=== PATIENT | female | born 1995 | race Caucasian/White ===

== ENCOUNTER → 2019-01-19 | Outpatient (CLI) | payer BC ==
--- NOTE | 2019-01-19 15:48 | Diagnostic Imaging Report ---
INDICATION: Follow up subchorionic hemorrhage. TECHNIQUE: Multiple real-time grayscale images were obtained over the gravid uterus. COMPARISON: None FINDINGS: The cervix measures 4 cm in length and is closed. Fetus is in transverse lie with head to maternal right. Placenta is anterior and fundal in position. There is a small [id number] hypoechoic subchorionic hemorrhage measuring 0.6 cm in thickness and 3.4 cm in length. This involves less than 25% of the placental surface. The amount of amniotic fluid appears visually appropriate. heart rate is 142 beats per minute. IMPRESSION: 1. Thin elongated subchorionic hemorrhage measures 0.6 cm in thickness x 3.4 cm in length. Dictated by: Dictated on workstation # [id number]
== END ==
LOC: RAD 12:37
PROVIDERS: ATTEND Obstetrics & Gynecology
DX: O46.8X2 Other antepartum hemorrhage, second trimester (principal); Z3A.00 Weeks of gestation of pregnancy not specified
CPT/HCPCS: 76816

== ENCOUNTER → 2019-03-07 | Outpatient (CLI) | payer BC ==
--- NOTE | 2019-03-07 15:27 | Diagnostic Imaging Report ---
INDICATION: survey. TECHNIQUE: Multiple real-time grayscale images were obtained over the gravid uterus. COMPARISON: 01/19/2019. FINDINGS: There is a single live fetus in a cephalic presentation. heart rate was recorded at 139 beats per minute. Placenta is anterior. The amniotic fluid volume is normal. Cervical length is approximately 3.1 cm. survey demonstrates kidneys, bladder and stomach to be unremarkable. There is a three-vessel cord with normal insertion. Spine is unremarkable. Four-chamber heart view is limited. head anatomy somewhat limited due to patient body habitus. Biometrical measurements are as follows: Biparietal 5.16 cm, age 21 weeks 5 days. Head circumference 19.11 cm, age 21 weeks 3 days. Abdominal circumference 16.78 cm, age 21 weeks 6 days. Femur length 3.92 cm, age 22 weeks 5 days. Sonographic estimate age: 22 weeks 0 days. Sonographic estimated date of delivery: 07/11/2019. Estimated Weight: 473 gm (+/- 69 gm). LMP percentile: 26%. heart rate: 139 beats per minute. number: 1 of 1. IMPRESSION: Single live IUP approximately 22 weeks 0 days gestational age demonstrating normal interval growth when compared with prior exam. survey is unremarkable although head and four chamber heart views are somewhat limited on today's study. Dictated by: Dictated on workstation # [id number]
== END ==
LOC: RAD 14:15
PROVIDERS: ATTEND Obstetrics & Gynecology
DX: O10.912 Unspecified pre-existing hypertension complicating pregnancy, second trimester (principal); O41.8X20 Other specified disorders of amniotic fluid and membranes, second trimester, not applicable or unspecified; O24.912 Unspecified diabetes mellitus in pregnancy, second trimester; Z3A.22 22 weeks gestation of pregnancy
CPT/HCPCS: 76805

== ENCOUNTER → 2019-04-18 | Outpatient (CLI) | payer BC ==
--- NOTE | 2019-04-18 14:31 | Diagnostic Imaging Report ---
INDICATION: Followup anatomy and growth. TECHNIQUE: Multiple real-time grayscale images were obtained over the gravid uterus. COMPARISON: 03/07/2019. FINDINGS: There is a single live fetus in breech presentation. heart rate was recorded at 136 beats per minute. Placenta is anterior. Amniotic fluid index is 12.6 cm. Cervical length is 4.3 cm. Four-chamber heart is noted today. brain anatomy is unremarkable. Biometrical measurements are as follows: Biparietal 7.30 cm, age 29 weeks 3 days. Head circumference 26.48 cm, age 28 weeks 6 days. Abdominal circumference 24.13 cm, age 28 weeks 3 days. Femur length 5.18 cm, age 27 weeks 5 days. Sonographic estimate age: 28 weeks 5 days. Sonographic estimated date of delivery: 07/06/2019. Estimated Weight: 1198 gm (+/- 175 gm). LMP percentile: 31%. heart rate: 136 beats per minute. number: 1 of 1. IMPRESSION: Single live IUP at 28 to 29 weeks gestational age demonstrating normal interval growth when compared with prior exam. No complicating features are seen. Dictated by: Dictated on workstation # [id number]
== END ==
LOC: RAD 12:02
PROVIDERS: ATTEND Obstetrics & Gynecology
DX: O99.283 Endocrine, nutritional and metabolic diseases complicating pregnancy, third trimester (principal); O10.913 Unspecified pre-existing hypertension complicating pregnancy, third trimester; O24.313 Unspecified pre-existing diabetes mellitus in pregnancy, third trimester; Z3A.28 28 weeks gestation of pregnancy
CPT/HCPCS: 76805

== ENCOUNTER → 2019-05-16 | Outpatient (CLI) | payer BC ==
--- NOTE | 2019-05-16 17:13 | Diagnostic Imaging Report ---
INDICATION: Chronic hypertension. TECHNIQUE: Multiple real-time grayscale images were obtained over the gravid uterus. COMPARISON: 04/18/2019. FINDINGS: The previous OB ultrasound exam of 04/18/2019 noted a single live fetus of approximately 28-29 weeks gestation. On this exam, the fetus is again visualized. The fetus is cephalic in presentation. heart motion was noted and a rate of 139 bpm was recorded. The biophysical profile score is 8/8 and within normal limits. On the previous exam, the amniotic fluid index was 12.59. On this study, the KAI has increased and is now 25.22 (normal 8 to 22 cm). The reason for the polyhydramnios is not certain. The placenta is anterior and there is no previa. The cervix is visualized and measures 4 cm in length. The growth parameters average 33 weeks 3 days, +/- 2.5 weeks. By the first exam, the estimated age should be 32 weeks 3 days, +/- 2 weeks. Biometrical measurements are as follows: Biparietal 8.61 cm, age 34 weeks 6 days. Head circumference 30.84 cm, age 34 weeks 3 days. Abdominal circumference 27.77 cm, age 31 weeks 6 days. Femur length 6.18 cm, age 32 weeks 1 days. Sonographic estimate age: 33 weeks 3 days. Sonographic estimated date of delivery: 07/01/2019. Estimated Weight: 1964 gm (+/- 287 gm). LMP percentile: 38%. heart rate: 139 beats per minute. number: 1 of 1. IMPRESSION: 1. There is a single live fetus of approximately 32 weeks 5 days +/- 2.5 weeks. The EDC remains 07/06/2019. 2. The biophysical profile score is 8/8 and within normal limits. 3. In the interval since the prior exam, polyhydramnios has developed. This is of uncertain etiology. 4. These results were called to Anita in Dr. Marily Brandt's office. Dictated by: Dictated on workstation # [id number]
== END ==
LOC: RAD 12:54
PROVIDERS: ATTEND Obstetrics & Gynecology
DX: O24.313 Unspecified pre-existing diabetes mellitus in pregnancy, third trimester (principal); O10.913 Unspecified pre-existing hypertension complicating pregnancy, third trimester; Z3A.32 32 weeks gestation of pregnancy
CPT/HCPCS: 76805; 76819

== ENCOUNTER 2019-06-14 14:56 | Inpatient (IN) | payer BC ==
[2019-06-14] VITALS (25 sets, daily range): BP systolic 136–200; BP diastolic 70–131
[~2019-06-14] VITALS: Ht 165.1 cm; Wt 130.2 kg
--- NOTE | 2019-06-14 14:49 | NUR ---
IVETTE MENDEZ presented to unit via ambulation from office, with c/o MONITORING/CONTRACTIONS. IVETTE MENDEZ weighed, gowned, voided, and to bed. EFHM and TOCO applied, VS taken. IVETTE MENDEZ oriented to bed controls, call light, TV, heat, and A/C controls.
[2019-06-14] MEDS ORDERED: NS IV 1000 ML 1,000 ML ONE (16:37)
[2019-06-14] MEDS ORDERED: amLODIPine 10 MG (NORVASC) TAB PO NR (17:00)
[2019-06-14] MEDS: NS IV 1000 ML 1,000 ML IV SCH (17:00)
[2019-06-14] MEDS: metFORMIN 500 MG (GLUCOPHAGE) TAB PO SCH (17:00)
[2019-06-14] MEDS ORDERED: CATHETER FLUSH 10 ML SYR IV PRN (17:15)
[2019-06-14 17:16] LABS: HEMOGLOBIN 11.6 G/DL (11.5-16.0); WHITE BLOOD COUNT 11.5 10^3/uL (4.3-11.0)
[2019-06-14 17:17] LABS: BASOPHILS % (AUTO) 0 % (0-10); EOSINOPHILS # (AUTO) 0.1 10^3/uL (0.0-0.3); EOSINOPHILS % (AUTO) 1 % (0-10); HEMATOCRIT 34 % (35-52); LYMPHOCYTES # (AUTO) 1.7 X 10^3 (1.0-4.0); LYMPHOCYTES % (AUTO) 15 % (12-44); MEAN CORPUSCULAR HEMOGLOBIN 28 PG (25-34); MEAN CORPUSCULAR HGB CONC 34 G/DL (32-36); MEAN CORPUSCULAR VOLUME 83 FL (80-99); MEAN PLATELET VOLUME 10.6 FL (7.4-10.4); MONOCYTES # (AUTO) 0.8 X 10^3 (0.0-1.0); MONOCYTES % (AUTO) 7 % (0-12); NEUTROPHILS # (AUTO) 8.9 X 10^3 (1.8-7.8); NEUTROPHILS % (AUTO) 77 % (42-75); PLATELET COUNT 288 10^3/uL (130-400); RED CELL DISTRIBUTION WIDTH 14.2 % (10.0-14.5)
[2019-06-14 17:35] LABS: ALANINE AMINOTRANSFERASE 14 U/L (0-55); ALBUMIN 3.5 GM/DL (3.2-4.5); ALKALINE PHOSPHATASE 90 U/L (40-136); BILIRUBIN,TOTAL 0.2 MG/DL (0.1-1.0); BUN/CREATININE RATIO 18; CALCIUM 9.9 MG/DL (8.5-10.1); CARBON DIOXIDE 22 MMOL/L (21-32); CHLORIDE 107 MMOL/L (98-107); CREATININE SERUM 0.85 MG/DL (0.60-1.30); GFR ESTIMATED > 60; GLUCOSE 131 MG/DL (70-105); POTASSIUM 4.3 MMOL/L (3.6-5.0); SODIUM 137 MMOL/L (135-145); URIC ACID 6.7 MG/DL (2.6-7.2)
[2019-06-14] MEDS: VANCOMYCIN INJECTION 1,000 MG in NS (IVPB) 250 ML IV SCH (17:38)
[2019-06-14] MEDS ORDERED: ZOLPIDEM 5 MG (AMBIEN) TAB PO PRN (17:45)
[2019-06-14] MEDS: LABETALOL 200 MG (NORMODYNE) TAB PO SCH (19:53)
[2019-06-14] MEDS ORDERED: MAGNESIUM 4 GM/100 ML IVPB 100 ML IV SCH (20:15)
[2019-06-14] MEDS ORDERED: CALCIUM GLUC. 10% 4.65 MEQ/10 ML VIAL IV PRN (20:15)
[2019-06-14] MEDS: MAGNESIUM SULFATE DRIP 500 ML IV SCH (20:34)
[2019-06-14] MEDS ORDERED: ONDANSETRON 4 MG/2 ML (SDV) Z0FRAN IVP PRN (22:00)
[2019-06-15] VITALS (91 sets, daily range): BP systolic 122–186; BP diastolic 57–103
[2019-06-15] MEDS ORDERED: SUFENTA 0.6MCG/ML BUPIVA 0.125 100 ML ONE ×3 (03:56→19:42)
[2019-06-15] MEDS: LABETALOL 200 MG (NORMODYNE) TAB PO SCH ×2 (03:56→10:18)
[2019-06-15] MEDS ORDERED: LACTATED RINGERS 1,000 ML IV ONE (04:05)
[2019-06-15] MEDS ORDERED: OXYTOCIN/NORMAL SALINE 500 ML IV SCH ×2 (04:18→22:16)
[2019-06-15] MEDS ORDERED: fentaNYL INJECTION 100 MCG/2 ML AMP ONE ×2 (04:33→21:13)
[2019-06-15] MEDS: NS IV 1000 ML 1,000 ML IV SCH ×3 (04:51→22:43)
[2019-06-15] MEDS ORDERED: PHYTONADIONE (VIT. K) NEONATAL 1 MG/0.5 ML AMP ONE (04:56)
[2019-06-15] MEDS ORDERED: ERYTHROMYCIN OPHTH OINT 1 GM (SINGLE USE) TUBE ONE (04:56)
[2019-06-15] MEDS ORDERED: VANCOMYCIN 1000 MG/VIAL ONE (05:44)
[2019-06-15] MEDS ORDERED: NS (IVPB) 250 ML ONE (05:44)
[2019-06-15] MEDS: VANCOMYCIN INJECTION 1,000 MG in NS (IVPB) 250 ML IV SCH ×2 (05:58→18:03)
[2019-06-15] MEDS: MAGNESIUM SULFATE DRIP 500 ML IV SCH ×2 (06:37→16:38)
[2019-06-15] MEDS ORDERED: metFORMIN 500 MG (GLUCOPHAGE) TAB PO SCH (17:00)
--- NOTE | 2019-06-15 19:00 | NUR ---
REFER TO LABOR FLOW SHEET.
[2019-06-15] MEDS ORDERED: CITRIC ACID/SOB CIT (BICITRA) 30 ML UDC ONE (19:29)
[2019-06-15] MEDS ORDERED: METOCLOPRAMIDE INJ 10 MG/2 ML (REGLAN) ONE (19:29)
[2019-06-15] MEDS ORDERED: AZITHROMYCIN 500 MG (ZITHROMAX) VIAL ONE (19:29)
[2019-06-15] MEDS ORDERED: FAMOTIDINE 20MG/2ML IV (PEPCID) ONE (19:30)
[2019-06-15] MEDS ORDERED: WATER (STERILE) FOR INJECTION 10 ML ONE (19:31)
[2019-06-15] MEDS ORDERED: ceFAZolin 2 GM/50 ML NS 50 ML IV NR (19:45)
[2019-06-15] MEDS ORDERED: CITRIC ACID/SOB CIT (BICITRA) 30 ML UDC PO ONE (19:45)
[2019-06-15] MEDS ORDERED: METOCLOPRAMIDE INJ 10 MG/2 ML (REGLAN) IV ONE (19:45)
--- NOTE | 2019-06-15 19:51 | Progress Note ---
Progress Note Assessment/Plan Date Seen by Provider: Jun 15, 2019 Time Seen by Provider: 19:30 Events since last exam Patient was admitted from the office yesterday with labor at 36 5/7 weeks Type II diabetes, chronic hypertension with worsening blood pressures. She has since developed preeclampsia and has been started on magnesium for seizure prophylaxis Her blood pressures have been controlled with her Norvasc and labetalol (These are meds she was taking prior to admission). She took metformin last night and fasting bs this am was 159, but no insulin given as she was not eating today. She is GBS + with pcn allergy so has received 3 doses of IV vancomycin. She has had adequate contractions after AROM and augmentation wit Pitocin. Due to obesity (BMI 47) the contractions and hearttones have been difficult to trace. She is now requesting section. She has had progression but the cervical dilation has stalled. well being is reassuring will plan primary section due to failure to dilate/arrest of dilation, gestational diabetes, B, Preeclampsia, morbid obesity, GBS + Risks, include bleeding, infection, injury to bowel, bladder and ureter. Will do prophylactic antibiotics and SCDs. appropriate consent has been signed. Assessment/Plan See above Vitals Last set of Vitals Signs Vital Signs Date Time Temp Pulse Resp B/P (MAP) Pulse Ox O2 Delivery O2 Flow Rate FiO2 06/15/19 18:34 96.7 06/15/19 18:23 91 18 178/85 (116) 100 Non Rebreather 10.00 I&O I&O Intake and Output 06/15/19 00:00 Intake Total 100 ml Balance 100 ml Intake IV Total 100 ml Daily Weight Change No Labs Laboratory Tests 06/14/19 21:30: Glucometer 138H 06/15/19 06:27: Glucometer 159H Focused Exam Respiratory: Chest Non Tender, Lungs Clear, Normal Breath Sounds Cardiovascular: Regular Rate, Rhythm Clinical Quality Measures DVT/VTE Risk/Contraindication: Risk Factor Score Per Nursin RFS Level Per Nursing on Admit: 2=Moderate YUMIKO BENITEZ DO Jun 15, 2019 19:51
[2019-06-15] MEDS ORDERED: LIDOCAINE PF 2% 5 ML (XYLOCAINE) VIAL ONE (21:13)
--- NOTE | 2019-06-15 22:16 | Operative Report ---
Operative Report Date of Procedure/Surgery Jun 15, 2019 Surgeon (s) YUMIKO BENITEZ DO Senior Supplier Quality Engineer (s): Roxanna Arenas, MS III Allergies and Home Medications Allergies Coded Allergies: Penicillins (Verified Allergy, Mild, 06/14/19) Hot/flushed/heart racing Pork/Porcine Containing Products (Verified Allergy, Unknown, 06/14/19) YUMIKO BENITEZ DO Jun 15, 2019 22:16
[2019-06-15] MEDS ORDERED: CALCIUM GLUC. 10% 4.65 MEQ/10 ML VIAL IV PRN (22:30)
[2019-06-15] MEDS ORDERED: TETANUS,DIPTH,PERTUSS P/F (BOOSTRIX) 0.5 ML VIAL IM SCH (22:30)
[2019-06-15] MEDS ORDERED: morphine INJ 4 MG/ML 1 ML (VIAL/SYRINGE) IVP PRN (22:30)
[2019-06-15] MEDS ORDERED: MEASLES,MUMPS,RUBELLA 1 EA INJ SC SCH (22:30)
[2019-06-15] MEDS ORDERED: MAGNESIUM 4 GM/100 ML IVPB 100 ML IV SCH (22:30)
[2019-06-15] MEDS ORDERED: ONDANSETRON 4 MG/2 ML (SDV) Z0FRAN IVP PRN ×2 (22:30→23:45)
[2019-06-15] MEDS ORDERED: ONDANSETRON 4 MG/2 ML (SDV) Z0FRAN ONE (22:41)
[2019-06-15] MEDS: metFORMIN 500 MG (GLUCOPHAGE) TAB PO SCH ×2 (22:43→22:48)
[2019-06-15] MEDS ORDERED: MAGNESIUM SULFATE DRIP 500 ML IV SCH (22:51)
[2019-06-15] MEDS: KETOROLAC 30 MG/ML VIAL IV SCH (23:30)
--- NOTE | 2019-06-15 23:41 | Cesarean Section Operative ---
Procedure Procedure Note Pre-operative Diagnosis: Samantha Elmore is a (23 /Para / ,Gestational Age (wks)36 with [] Post-operative Diagnosis: same Procedure: Primary low transverse section Physician: YUMIKO BENITEZ Blue Leather Setter: Roxanna Arenas MS III Estimated blood loss: 450 mL Disposition: stable Findings: Viable mlae infant, Apgars 6/8, weight 6#10oz, intact placenta, 3vc, normal appearing uterus, tubes, and ovaries. Indications:Samantha Elmoer is a (23 /Para / ,Gestational Age (wks)36 presenting for []. Procedure Details: The patient was seen in pre-op and the procedure was discussed with the patient in full, including the risks, benefits, and alternatives. All questions were answered. The patient was taken to the operating room and a time out was performed, verifying patient and procedure. After spinal anesthesia was placed by our anesthesia colleagues, the patient was placed in the dorsal supine with leftward tilt for uterine displacement.~ Her abdomen was then prepped and draped in the typical sterile fashion. A Pfannenstiel skin incision was made using a scalpel and carried down through the underlying fascia. The fascia was incised in the midline and tented up using Giovanny clamps. On both the inferior and superior fascia side the rectus muscle was dissected off bluntly and sharply using Riley scissors. The peritoneum was identified and entered bluntly in the midline. This was then stretched laterally using manual strength. After entering the abdominal cavity and confirming lack of intraperitoneal adhesions, a large Jose F retractor was placed and the lower uterine segment was visualized. A bladder flap was created with the use of Metzenbaum scissors.~ A scalpel was utilized to make a low transverse uterine incision. Amniotomy was performed with an Allis clamp with return of clear fluid. The 's head was grasped and brought to the level of the incision. Fundal pressure was applied and infant was delivered without difficulty. Mouth and nares were suctioned with bulb suction. After the umbilical cord was clamped and cut, the was handed off to the pediatric staff. A sample of cord blood was then obtained. The placenta was delivered intact via uterine massage. The uterus was exteriorized and cleared of all clots and debris. The uterine incision was closed using 0 Vicryl in a running locked fashion. A second imbricated layer was placed using 0 Vicryl in a running fashion as well. The uterus was flexed forward and the posterior rectouterine space was inspected and cleared of all clots and debris. Again the hysterotomy site was examined and hemostasis was observed. The bilateral tubes and ovaries appeared normal. The uterus was placed back into the abdominal cavity and abdominal gutters were cleared of all clots and debris. A final check of the uterine incision showed it to be hemostatic. The peritoneum was closed using 3-0 Vicryl in a running fashion. The fascia was closed with 0 Vicryl in a running fashion. The subcutaneous space was hemostatic, and irrigated. The subcutaneous space was closed with 3-0 Vicryl in several single interrupted stitches. The skin was then closed using 4-0 Monocryl in a running subcuticular fashion. The skin edges were reapproximated together and were hemostatic. A pressure dressing was applied. All sponge, lap and needle counts were correct at the end of the procedure per nursing. Vitals - Labs Vital Signs - I&O Vital Signs Date Time Temp Pulse Resp B/P (MAP) Pulse Ox O2 Delivery O2 Flow Rate FiO2 06/15/19 21:40 97.6 100 18 126/58 (80) 98 Room Air 06/15/19 21:25 96 18 122/59 (80) 97 Room Air 06/15/19 21:10 99 18 127/57 (80) 97 Room Air 06/15/19 20:55 91 18 127/62 (83) 97 Room Air 06/15/19 20:40 93 18 147/74 (98) 96 Room Air 06/15/19 20:25 93 18 124/60 (81) 98 Room Air 06/15/19 20:10 94 18 132/62 (85) 97 Room Air 06/15/19 19:55 90 18 131/61 (84) 99 Room Air 06/15/19 19:40 96.5 94 18 159/90 (113) 97 Room Air 06/15/19 19:25 90 18 169/89 (115) 99 Room Air 06/15/19 19:10 89 18 175/87 (116) 97 Room Air 06/15/19 18:52 90 18 170/89 (116) 98 Room Air 06/15/19 18:38 96 18 181/99 (126) 98 Room Air 06/15/19 18:34 96.7 06/15/19 18:23 91 18 178/85 (116) 100 Non Rebreather 10.00 06/15/19 18:07 89 18 169/75 (106) 100 Non Rebreather 10.00 06/15/19 17:52 93 18 186/86 (119) 100 Non Rebreather 10.00 06/15/19 17:37 87 18 171/82 (111) 100 Non Rebreather 10.00 06/15/19 17:32 96.5 06/15/19 17:24 85 18 153/81 (105) 100 Non Rebreather 10.00 06/15/19 17:08 86 18 159/82 (107) 100 Non Rebreather 10.00 06/15/19 16:53 82 18 150/80 (103) 100 Non Rebreather 10.00 06/15/19 16:38 95.4 06/15/19 16:37 81 18 162/86 (111) 100 Non Rebreather 10.00 06/15/19 16:22 84 18 159/89 (112) 98 Non Rebreather 10.00 06/15/19 16:08 82 18 158/88 (111) 100 Non Rebreather 10.00 06/15/19 15:53 79 18 154/83 (106) 100 Non Rebreather 10.00 06/15/19 15:37 78 18 154/87 (109) 100 Non Rebreather 10.00 06/15/19 15:23 78 18 149/82 (104) 100 Non Rebreather 10.00 06/15/19 15:15 95.9 06/15/19 15:08 77 18 163/92 (115) 100 Non Rebreather 10.00 06/15/19 14:53 79 18 159/87 (111) 100 Non Rebreather 10.00 06/15/19 14:39 79 18 161/85 (110) 100 Non Rebreather 10.00 06/15/19 14:23 81 18 166/87 (113) 100 Non Rebreather 10.00 06/15/19 14:07 80 18 170/81 (110) 100 Non Rebreather 10.00 06/15/19 13:54 81 18 164/90 (114) 100 Non Rebreather 10.00 06/15/19 13:38 83 18 172/88 (116) 100 Non Rebreather 10.00 06/15/19 13:22 78 18 166/80 (108) 100 Non Rebreather 10.00 06/15/19 13:08 82 18 173/87 (115) 100 Non Rebreather 10.00 06/15/19 12:57 81 18 179/88 (118) 100 Non Rebreather 10.00 06/15/19 12:55 83 18 180/98 (125) 100 Non Rebreather 10.00 06/15/19 12:53 97.9 81 18 173/92 (119) 100 Non Rebreather 10.00 06/15/19 12:38 82 18 165/87 (113) 100 Non Rebreather 10.00 06/15/19 12:22 80 18 161/87 (111) 100 Non Rebreather 10.00 06/15/19 12:10 77 18 154/85 (108) 100 Non Rebreather 10.00 06/15/19 11:52 97.1 74 18 137/72 (93) 99 Room Air 06/15/19 11:38 82 18 145/78 (100) 95 Room Air 06/15/19 11:23 82 18 150/80 (103) 97 Room Air 06/15/19 11:07 84 18 154/71 (98) 97 Room Air 06/15/19 10:52 87 18 169/81 (110) 97 Room Air 06/15/19 10:38 84 18 159/82 (107) 97 Room Air 06/15/19 10:22 83 18 157/84 (108) 99 Room Air 06/15/19 10:20 95.6 06/15/19 10:07 83 18 160/87 (111) 97 Room Air 06/15/19 09:52 79 18 139/75 (96) 96 Room Air 06/15/19 09:37 78 18 147/82 (103) 96 Room Air 06/15/19 09:22 85 18 150/86 (107) 100 Room Air 06/15/19 09:08 81 18 143/81 (101) 99 Room Air 06/15/19 09:01 97.9 06/15/19 08:53 84 18 160/86 (110) 99 Room Air 06/15/19 08:37 85 18 154/84 (107) 98 Room Air 06/15/19 08:23 83 18 150/79 (102) 95 Room Air 06/15/19 08:08 81 18 160/92 (114) 99 Room Air 06/15/19 07:52 84 18 158/89 (112) 96 Room Air 06/15/19 07:39 81 18 162/82 (108) 98 Room Air 06/15/19 07:22 96.5 83 18 144/82 (102) 99 Room Air 06/15/19 07:08 81 18 137/77 (97) 99 Room Air 06/15/19 07:00 80 138/80 (99) 99 06/15/19 06:45 81 153/76 (101) 98 06/15/19 06:30 76 151/73 (99) 97 06/15/19 06:15 97.0 78 149/66 (93) 98 06/15/19 05:56 79 166/77 (106) 95 06/15/19 05:50 81 161/68 (99) 95 06/15/19 05:48 78 166/77 (106) 95 06/15/19 05:31 79 178/92 (120) 06/15/19 05:25 80 172/89 (116) 06/15/19 05:21 78 173/86 (115) 06/15/19 05:15 96.5 85 150/101 (117) 97 06/15/19 05:10 88 158/103 (121) 06/15/19 05:00 80 150/77 (101) 97 06/15/19 04:51 105 179/97 (124) 06/15/19 04:48 89 163/90 (114) 06/15/19 04:04 86 163/87 (112) 06/15/19 03:47 87 162/92 (115) 06/15/19 03:24 87 174/94 (120) 06/15/19 03:12 86 169/98 (121) 06/15/19 03:11 87 172/92 (118) 06/15/19 03:05 89 170/81 (110) 06/15/19 03:00 89 18 170/81 (110) 06/15/19 02:05 97.5 82 141/75 (97) 06/15/19 02:00 82 18 141/75 (97) 06/15/19 01:00 90 18 144/88 (106) 06/15/19 01:00 90 144/88 (106) 06/15/19 00:13 80 154/75 (101) 06/15/19 00:04 75 165/94 (117) 06/15/19 00:00 80 18 154/75 (101) I & O 06/15/19 07:00 Intake Total 2100 ml Balance 2100 ml Labs Laboratory Tests 06/15/19 06:27: Glucometer 159H 06/15/19 19:57: Glucometer 123H YUMIKO BENITEZ DO Jun 15, 2019 23:41
[2019-06-15] MEDS ORDERED: NALOXONE 0.4 MG/ML 1 ML (NARCAN) VIAL IV PRN ×2 (23:45)
[2019-06-15] MEDS ORDERED: METOCLOPRAMIDE INJ 10 MG/2 ML (REGLAN) IV PRN (23:45)
[2019-06-15] MEDS ORDERED: morphine INJ 10 MG/ML 1ML (SYR OR VIAL) IVP ONE (23:45)
[2019-06-15] MEDS ORDERED: PROMETHAZINE INJ 25 MG/ML (PHENERGAN) AMP IVP ONE (23:45)
[2019-06-15] MEDS ORDERED: MEPERIDINE (DEMEROL) INJ 50 MG/ML IVP ONE (23:45)
[2019-06-15] MEDS ORDERED: diphenhydrAMINE 50 MG/ML INJ (BENADRYL) IV PRN (23:45)
[2019-06-15] MEDS ORDERED: ONDANSETRON 4 MG/2 ML (SDV) Z0FRAN IV PRN (23:45)
[2019-06-16] VITALS (18 sets, daily range): BP systolic 114–172; BP diastolic 67–118
[2019-06-16] MEDS ORDERED: LABETALOL HCL 20 MG/4 ML VIAL ONE (00:18)
[2019-06-16] MEDS ORDERED: LABETALOL HCL 20 MG/4 ML VIAL IV ONE (00:30)
[2019-06-16] MEDS: METOCLOPRAMIDE 10 MG (REGLAN) TAB PO SCH ×3 (01:54→18:05)
[2019-06-16] MEDS: LABETALOL 200 MG (NORMODYNE) TAB PO SCH ×3 (01:54→20:04)
[2019-06-16] MEDS: NS IV 1000 ML 1,000 ML IV SCH (01:54)
[2019-06-16] MEDS: MAGNESIUM SULFATE DRIP 500 ML IV SCH (02:00)
--- NOTE | 2019-06-16 03:00 | NUR ---
Report to Nadia LORENZANA
[2019-06-16] MEDS ORDERED: MILK OF MAGNESIA 400 MG/5 ML 30 ML UDC PO PRN (05:00)
[2019-06-16] MEDS ORDERED: CATHETER FLUSH 10 ML SYR IV SCH (06:00)
[2019-06-16] MEDS: KETOROLAC 30 MG/ML VIAL IV SCH ×3 (06:12→18:06)
[2019-06-16 06:37] LABS: BASOPHILS % (AUTO) 0 % (0-10); EOSINOPHILS % (AUTO) 0 % (0-10); HEMATOCRIT 29 % (35-52); HEMOGLOBIN 9.9 G/DL (11.5-16.0); LYMPHOCYTES # (AUTO) 1.1 X 10^3 (1.0-4.0); LYMPHOCYTES % (AUTO) 10 % (12-44); MEAN CORPUSCULAR HEMOGLOBIN 29 PG (25-34); MEAN CORPUSCULAR HGB CONC 34 G/DL (32-36); MEAN CORPUSCULAR VOLUME 84 FL (80-99); MEAN PLATELET VOLUME 9.9 FL (7.4-10.4); MONOCYTES # (AUTO) 0.8 X 10^3 (0.0-1.0); MONOCYTES % (AUTO) 8 % (0-12); NEUTROPHILS # (AUTO) 8.7 X 10^3 (1.8-7.8); NEUTROPHILS % (AUTO) 82 % (42-75); PLATELET COUNT 220 10^3/uL (130-400); RED CELL DISTRIBUTION WIDTH 13.8 % (10.0-14.5); WHITE BLOOD COUNT 10.6 10^3/uL (4.3-11.0)
[2019-06-16] MEDS: metFORMIN 500 MG (GLUCOPHAGE) TAB PO SCH ×2 (07:53→20:04)
[2019-06-16] MEDS: ACETAMINOPHEN 500 MG TAB (TYLENOL) PO SCH ×2 (07:53→20:04)
[2019-06-16] MEDS: DOCUSATE SODIUM 100 MG (COLACE) CAP PO SCH ×2 (08:47→20:04)
[2019-06-16] MEDS ORDERED: AZITHROMYCIN INJECTION 500 MG in NS (IVPB) 250 ML IV SCH (09:00)
--- NOTE | 2019-06-16 09:02 | NUR ---
Dr. Brandt called to unit for update. Update given on VS, output, pt requesting to have nur removed. will round around 1030.
--- NOTE | 2019-06-16 10:41 | Postpartum Progress Note ---
Post Op Post-operative Day #1 s/p PLTCS Preeclampsia/chronic hypertension; GDM B Subjective: Patient is without complaints. Ambulating, voiding after nur removed. Tolerating a regular diet without nausea or vomiting. Normal lochia. Pain is well controlled with oral pain medications. Passing flatus. [] feeding. [] Objective: Laboratory Tests Test 06/15/19 19:57 06/16/19 06:25 Range/Units Glucometer 123 H 70-110 MG/DL White Blood Count 10.6 4.3-11.0 10^3/uL Red Blood Count 3.46 L 4.35-5.85 10^6/uL Hemoglobin 9.9 L 11.5-16.0 G/DL Hematocrit 29 L 35-52 % Mean Corpuscular Volume 84 80-99 FL Mean Corpuscular Hemoglobin 29 25-34 PG Mean Corpuscular Hemoglobin Concent 34 32-36 G/DL Red Cell Distribution Width 13.8 10.0-14.5 % Platelet Count 220 130-400 10^3/uL Mean Platelet Volume 9.9 7.4-10.4 FL Neutrophils (%) (Auto) 82 H 42-75 % Lymphocytes (%) (Auto) 10 L 12-44 % Monocytes (%) (Auto) 8 0-12 % Eosinophils (%) (Auto) 0 0-10 % Basophils (%) (Auto) 0 0-10 % Neutrophils # (Auto) 8.7 H 1.8-7.8 X 10^3 Lymphocytes # (Auto) 1.1 1.0-4.0 X 10^3 Monocytes # (Auto) 0.8 0.0-1.0 X 10^3 Eosinophils # (Auto) 0.0 0.0-0.3 10^3/uL Basophils # (Auto) 0.0 0.0-0.1 10^3/uL Glucose Level 172 H 70-105 MG/DL 06/15/19 06/15/19 06/16/19 06/16/19 23:35 23:50 00:05 00:20 Temp 97.2 96.9 97.1 97.4 Resp 18 18 18 18 Pulse Ox 99 99 99 99 O2 Delivery Room Air Room Air Room Air Room Air 06/16/19 06/16/19 06/16/19 06/16/19 00:35 01:36 02:00 03:00 Temp 97.8 98.6 Pulse 82 87 91 Resp 18 18 18 18 B/P (MAP) 144/86 (105) 139/84 (102) 139/86 (103) Pulse Ox 100 98 97 95 O2 Delivery Room Air Room Air Room Air 06/16/19 06/16/19 06/16/19 06/16/19 03:24 04:00 05:00 06:00 Temp 97.9 Pulse 89 82 87 Resp 18 18 18 B/P (MAP) 133/84 (100) 144/87 (106) 121/78 (92) Pulse Ox 98 98 96 O2 Delivery Room Air 06/16/19 06/16/19 07:00 08:00 Temp 96.6 Pulse 87 81 Resp 18 18 B/P (MAP) 124/81 (95) 124/78 (93) Pulse Ox 98 96 06/16/19 00:00 Intake Total 1000 ml Output Total 2200 ml Balance -1200 ml Physical Exam: General - Alert and oriented, no apparent distress Abdomen - Soft, appropriately tender to palpation, non-distended, fundus firm at umbilicus Incision - clean, dry and intact; no erythema or induration, no drainage Extremities - no edema, negative Medina's bilaterally [] Assessment: [] post-operative day # [], status post []. Recovering well, hemodynamically stable Acute blood loss anemia [] Plan: Routine post-operative care. Encourage breast feeding. Encourage ambulation. VTE prophylaxis: SCDs. Ferrous sulfate supplementation. Plan for discharge [] Vitals - Labs Vital Signs - I&O Vital Signs Date Time Temp Pulse Resp B/P (MAP) Pulse Ox O2 Delivery O2 Flow Rate FiO2 06/16/19 08:00 81 18 124/78 (93) 96 06/16/19 07:00 96.6 87 18 124/81 (95) 98 06/16/19 06:00 87 18 121/78 (92) 96 06/16/19 05:00 82 18 144/87 (106) 98 06/16/19 04:00 97.9 89 18 133/84 (100) 98 06/16/19 03:24 Room Air 06/16/19 03:00 91 18 139/86 (103) 95 06/16/19 02:00 87 18 139/84 (102) 97 Room Air 06/16/19 01:36 98.6 82 18 144/86 (105) 98 Room Air 06/16/19 00:35 97.8 18 100 Room Air 06/16/19 00:20 97.4 18 99 Room Air 06/16/19 00:05 97.1 18 99 Room Air 06/15/19 23:50 96.9 18 99 Room Air 06/15/19 23:35 97.2 18 99 Room Air 06/15/19 21:40 97.6 100 18 126/58 (80) 98 Room Air 06/15/19 21:25 96 18 122/59 (80) 97 Room Air 06/15/19 21:10 99 18 127/57 (80) 97 Room Air 06/15/19 20:55 91 18 127/62 (83) 97 Room Air 06/15/19 20:40 93 18 147/74 (98) 96 Room Air 06/15/19 20:25 93 18 124/60 (81) 98 Room Air 06/15/19 20:10 94 18 132/62 (85) 97 Room Air 06/15/19 19:55 90 18 131/61 (84) 99 Room Air 06/15/19 19:40 96.5 94 18 159/90 (113) 97 Room Air 06/15/19 19:25 90 18 169/89 (115) 99 Room Air 06/15/19 19:10 89 18 175/87 (116) 97 Room Air 06/15/19 18:52 90 18 170/89 (116) 98 Room Air 06/15/19 18:38 96 18 181/99 (126) 98 Room Air 06/15/19 18:34 96.7 06/15/19 18:23 91 18 178/85 (116) 100 Non Rebreather 10.00 06/15/19 18:07 89 18 169/75 (106) 100 Non Rebreather 10.00 06/15/19 17:52 93 18 186/86 (119) 100 Non Rebreather 10.00 06/15/19 17:37 87 18 171/82 (111) 100 Non Rebreather 10.00 06/15/19 17:32 96.5 06/15/19 17:24 85 18 153/81 (105) 100 Non Rebreather 10.00 06/15/19 17:08 86 18 159/82 (107) 100 Non Rebreather 10.00 06/15/19 16:53 82 18 150/80 (103) 100 Non Rebreather 10.00 06/15/19 16:38 95.4 06/15/19 16:37 81 18 162/86 (111) 100 Non Rebreather 10.00 06/15/19 16:22 84 18 159/89 (112) 98 Non Rebreather 10.00 06/15/19 16:08 82 18 158/88 (111) 100 Non Rebreather 10.00 06/15/19 15:53 79 18 154/83 (106) 100 Non Rebreather 10.00 06/15/19 15:37 78 18 154/87 (109) 100 Non Rebreather 10.00 06/15/19 15:23 78 18 149/82 (104) 100 Non Rebreather 10.00 06/15/19 15:15 95.9 06/15/19 15:08 77 18 163/92 (115) 100 Non Rebreather 10.00 06/15/19 14:53 79 18 159/87 (111) 100 Non Rebreather 10.00 06/15/19 14:39 79 18 161/85 (110) 100 Non Rebreather 10.00 06/15/19 14:23 81 18 166/87 (113) 100 Non Rebreather 10.00 06/15/19 14:07 80 18 170/81 (110) 100 Non Rebreather 10.00 06/15/19 13:54 81 18 164/90 (114) 100 Non Rebreather 10.00 06/15/19 13:38 83 18 172/88 (116) 100 Non Rebreather 10.00 06/15/19 13:22 78 18 166/80 (108) 100 Non Rebreather 10.00 06/15/19 13:08 82 18 173/87 (115) 100 Non Rebreather 10.00 06/15/19 12:57 81 18 179/88 (118) 100 Non Rebreather 10.00 06/15/19 12:55 83 18 180/98 (125) 100 Non Rebreather 10.00 06/15/19 12:53 97.9 81 18 173/92 (119) 100 Non Rebreather 10.00 06/15/19 12:38 82 18 165/87 (113) 100 Non Rebreather 10.00 06/15/19 12:22 80 18 161/87 (111) 100 Non Rebreather 10.00 06/15/19 12:10 77 18 154/85 (108) 100 Non Rebreather 10.00 06/15/19 11:52 97.1 74 18 137/72 (93) 99 Room Air 06/15/19 11:38 82 18 145/78 (100) 95 Room Air 06/15/19 11:23 82 18 150/80 (103) 97 Room Air 06/15/19 11:07 84 18 154/71 (98) 97 Room Air 06/15/19 10:52 87 18 169/81 (110) 97 Room Air I & O 06/16/19 07:00 Intake Total 1500 ml Output Total 2240 ml Balance -740 ml Labs Laboratory Tests 06/15/19 19:57: Glucometer 123H 06/16/19 06:25: White Blood Count 10.6, Red Blood Count 3.46L, Hemoglobin 9.9L, Hematocrit 29L, Mean Corpuscular Volume 84, Mean Corpuscular Hemoglobin 29, Mean Corpuscular Hemoglobin Concent 34, Red Cell Distribution Width 13.8, Platelet Count 220, Mean Platelet Volume 9.9, Neutrophils (%) (Auto) 82H, Lymphocytes (%) (Auto) 10L , Monocytes (%) (Auto) 8, Eosinophils (%) (Auto) 0, Basophils (%) (Auto) 0, Neutrophils # (Auto) 8.7H, Lymphocytes # (Auto) 1.1, Monocytes # (Auto) 0.8, Eosinophils # (Auto) 0.0, Basophils # (Auto) 0.0, Glucose Level 172H YUMIKO BENITEZ DO Jun 16, 2019 10:41
--- NOTE | 2019-06-16 10:54 | NUR ---
Dr. Brandt to room to see pt. Addendum: 06/16/19 at 1106 by GARRISON CASILLAS RN Plan to D/C magnesium infusion and nur catheter at 1130
[2019-06-16 11:03] LABS: ALANINE AMINOTRANSFERASE 15 U/L (0-55); ALBUMIN 2.7 GM/DL (3.2-4.5); ALKALINE PHOSPHATASE 73 U/L (40-136); BILIRUBIN,TOTAL 0.2 MG/DL (0.1-1.0); BUN/CREATININE RATIO 19; CALCIUM 6.8 MG/DL (8.5-10.1); CARBON DIOXIDE 17 MMOL/L (21-32); CHLORIDE 104 MMOL/L (98-107); CREATININE SERUM 0.78 MG/DL (0.60-1.30); GFR ESTIMATED > 60; GLUCOSE 172 MG/DL (70-105); SODIUM 131 MMOL/L (135-145); TOTAL PROTEIN 5.4 GM/DL (6.4-8.2); URIC ACID 7.4 MG/DL (2.6-7.2)
[2019-06-16 11:08] LABS: MAGNESIUM 6.2 MG/DL (1.6-2.4)
--- NOTE | 2019-06-16 11:30 | NUR ---
Magnesium infusion stopped at this time, IV to SL. Preston catheter removed. Pericare performed. Fresh vpad and underwear on. Pt requesting to put on own clothes. Pt assisted with this at this time. Fresh ice water provided. No further needs or concerns voiced.
--- NOTE | 2019-06-16 15:00 | NUR ---
Pt assisted up to sitting at side of bed. Pt ambulates to bathroom accompanied by this RN without incident. +void, 500ml urine noted. Pt assisted with pericare, fresh vpad and underwear applied. Pt assisted back to bed, pt requesting to leave SCD's off at this time, will give pt break. Will return for VS.
--- NOTE | 2019-06-16 16:01 | Anesthesia-Regional Post-Op ---
Regional Patient Condition Mental Status: Alert, Oriented x3 Circulation: Same as Pre-Op Headache: Absent Sensation: Full Recovery Motor Block: Absent Post Op Complications Complications None Follow Up Care/Instructions Patient Instructions None needed. Anesthesia/Patient Condition Patient is doing well, no complaints, stable vital signs, no apparent adverse anesthesia problems. No complications reported per nursing. MAYDA GONZALES CRNA Jun 16, 2019 16:01
--- NOTE | 2019-06-16 16:30 | NUR ---
Breast pump set up and explained per Shi Linder RN at this time.
--- NOTE | 2019-06-16 20:30 | NUR ---
pt resting in bed. assessment completed. pt denies any needs at this time. plan of care discussed. all questions answered. will continue to monitor.
[2019-06-17] MEDS: METOCLOPRAMIDE 10 MG (REGLAN) TAB PO SCH ×5 (00:31→20:05)
[2019-06-17] MEDS: IBUPROFEN 600 MG (MOTRIN) TAB PO SCH ×6 (00:32→20:08)
[2019-06-17 02:00] VITALS: BP 143/81
[2019-06-17] MEDS: ACETAMINOPHEN 500 MG TAB (TYLENOL) PO SCH ×4 (05:42→22:03)
[2019-06-17 05:47] VITALS: BP 147/82
[2019-06-17 09:26] VITALS: BP 146/70
[2019-06-17] MEDS: LABETALOL 200 MG (NORMODYNE) TAB PO SCH ×5 (09:30→22:03)
[2019-06-17] MEDS: DOCUSATE SODIUM 100 MG (COLACE) CAP PO SCH ×2 (09:30→20:03)
[2019-06-17] MEDS: metFORMIN 500 MG (GLUCOPHAGE) TAB PO SCH ×2 (09:30→17:13)
--- NOTE | 2019-06-17 10:40 | NUR ---
Dr. Brandt here to see pt. Restart [facility] today. Plan to keep pt until tomorrow. Pt wanting to shower at this time. IV to SL. Towels and shower supplies provided. Will return to [facility] following shower. Encouraged pt to call if assistance needed. Addendum: 06/17/19 at 1053 by GARRISON CASILLAS RN Correction, SL pulled at this time. Tip intact.
--- NOTE | 2019-06-17 11:05 | Postpartum Progress Note ---
Post Op Post-operative Day #2 s/p PLTCS Subjective: Patient is without complaints. Ambulating, voiding after nur removed. Tolerating a regular diet without nausea or vomiting. Normal lochia. Pain is well controlled with oral pain medications. Passing flatus. breast and bottle feeding Objective: Laboratory Tests Test 06/14/19 17:00 06/14/19 21:30 06/15/19 06:27 06/15/19 19:57 Range/Units White Blood Count 11.5 H 4.3-11.0 10^3/uL Red Blood Count 4.12 L 4.35-5.85 10^6/uL Hemoglobin 11.6 11.5-16.0 G/DL Hematocrit 34 L 35-52 % Mean Corpuscular Volume 83 80-99 FL Mean Corpuscular Hemoglobin 28 25-34 PG Mean Corpuscular Hemoglobin Concent 34 32-36 G/DL Red Cell Distribution Width 14.2 10.0-14.5 % Platelet Count 288 130-400 10^3/uL Mean Platelet Volume 10.6 H 7.4-10.4 FL Neutrophils (%) (Auto) 77 H 42-75 % Lymphocytes (%) (Auto) 15 12-44 % Monocytes (%) (Auto) 7 0-12 % Eosinophils (%) (Auto) 1 0-10 % Basophils (%) (Auto) 0 0-10 % Neutrophils # (Auto) 8.9 H 1.8-7.8 X 10^3 Lymphocytes # (Auto) 1.7 1.0-4.0 X 10^3 Monocytes # (Auto) 0.8 0.0-1.0 X 10^3 Eosinophils # (Auto) 0.1 0.0-0.3 10^3/uL Basophils # (Auto) 0.0 0.0-0.1 10^3/uL Sodium Level 137 135-145 MMOL/L Potassium Level 4.3 3.6-5.0 MMOL/L Chloride Level 107 98-107 MMOL/L Carbon Dioxide Level 22 21-32 MMOL/L Anion Gap 8 5-14 MMOL/L Blood Urea Nitrogen 15 7-18 MG/DL Creatinine 0.85 0.60-1.30 MG/DL Estimat Glomerular Filtration Rate > 60 BUN/Creatinine Ratio 18 Glucose Level 131 H 70-105 MG/DL Uric Acid 6.7 2.6-7.2 MG/DL Calcium Level 9.9 8.5-10.1 MG/DL Corrected Calcium 10.3 H 8.5-10.1 MG/DL Total Bilirubin 0.2 0.1-1.0 MG/DL Aspartate Amino Transf (AST/SGOT) 13 5-34 U/L Alanine Aminotransferase (ALT/SGPT) 14 0-55 U/L Alkaline Phosphatase 90 40-136 U/L Lactate Dehydrogenase 156 125-220 U/L Total Protein 7.0 6.4-8.2 GM/DL Albumin 3.5 3.2-4.5 GM/DL Glucometer 138 H 159 H 123 H 70-110 MG/DL Test 06/16/19 06:15 06/16/19 06:25 Range/Units White Blood Count 10.6 4.3-11.0 10^3/uL Red Blood Count 3.46 L 4.35-5.85 10^6/uL Hemoglobin 9.9 L 11.5-16.0 G/DL Hematocrit 29 L 35-52 % Mean Corpuscular Volume 84 80-99 FL Mean Corpuscular Hemoglobin 29 25-34 PG Mean Corpuscular Hemoglobin Concent 34 32-36 G/DL Red Cell Distribution Width 13.8 10.0-14.5 % Platelet Count 220 130-400 10^3/uL Mean Platelet Volume 9.9 7.4-10.4 FL Neutrophils (%) (Auto) 82 H 42-75 % Lymphocytes (%) (Auto) 10 L 12-44 % Monocytes (%) (Auto) 8 0-12 % Eosinophils (%) (Auto) 0 0-10 % Basophils (%) (Auto) 0 0-10 % Neutrophils # (Auto) 8.7 H 1.8-7.8 X 10^3 Lymphocytes # (Auto) 1.1 1.0-4.0 X 10^3 Monocytes # (Auto) 0.8 0.0-1.0 X 10^3 Eosinophils # (Auto) 0.0 0.0-0.3 10^3/uL Basophils # (Auto) 0.0 0.0-0.1 10^3/uL Sodium Level 131 L 135-145 MMOL/L Potassium Level 4.0 3.6-5.0 MMOL/L Chloride Level 104 98-107 MMOL/L Carbon Dioxide Level 17 L 21-32 MMOL/L Anion Gap 10 5-14 MMOL/L Blood Urea Nitrogen 15 7-18 MG/DL Creatinine 0.78 0.60-1.30 MG/DL Estimat Glomerular Filtration Rate > 60 BUN/Creatinine Ratio 19 Glucose Level 172 H 70-105 MG/DL Uric Acid 7.4 H 2.6-7.2 MG/DL Calcium Level 6.8 L 8.5-10.1 MG/DL Corrected Calcium 7.8 L 8.5-10.1 MG/DL Magnesium Level 6.2 *H 1.6-2.4 MG/DL Total Bilirubin 0.2 0.1-1.0 MG/DL Aspartate Amino Transf (AST/SGOT) 21 5-34 U/L Alanine Aminotransferase (ALT/SGPT) 15 0-55 U/L Alkaline Phosphatase 73 40-136 U/L Lactate Dehydrogenase 258 H 125-220 U/L Total Protein 5.4 L 6.4-8.2 GM/DL Albumin 2.7 L 3.2-4.5 GM/DL 06/17/19 06/17/19 06/17/19 02:00 05:47 09:26 Temp 97.6 97.9 98.5 Pulse 89 87 77 Resp 18 18 18 B/P (MAP) 143/81 (101) 147/82 (103) 146/70 (95) Pulse Ox 98 98 98 O2 Delivery Room Air Room Air Room Air 06/17/19 00:00 Intake Total 1000 ml Output Total 1950 ml Balance -950 ml Physical Exam: General - Alert and oriented, no apparent distress Abdomen - Soft, appropriately tender to palpation, non-distended, fundus firm at umbilicus Incision - clean, dry and intact; no erythema or induration, no drainage Extremities - no edema, negative Medina's bilaterally [] Assessment: [] post-operative day # [], status post []. Recovering well, hemodynamically stable Acute blood loss anemia [] Plan: Routine post-operative care. Encourage breast feeding. Encourage ambulation. VTE prophylaxis: SCDs. Ferrous sulfate supplementation. Plan for discharge [] Vitals - Labs Vital Signs - I&O Vital Signs Date Time Temp Pulse Resp B/P (MAP) Pulse Ox O2 Delivery O2 Flow Rate FiO2 06/17/19 09:26 98.5 77 18 146/70 (95) 98 Room Air 06/17/19 05:47 97.9 87 18 147/82 (103) 98 Room Air 06/17/19 02:00 97.6 89 18 143/81 (101) 98 Room Air 06/16/19 22:10 98.0 89 18 140/76 (97) 98 Room Air 06/16/19 18:04 97.4 90 18 144/88 (106) 98 Room Air 06/16/19 15:30 98.0 88 20 142/83 (102) 97 Room Air I & O 06/17/19 07:00 Intake Total 3375 ml Output Total 3550 ml Balance -175 ml YUMIKO BENITEZ DO Jun 17, 2019 11:05
[2019-06-17] MEDS: amLODIPine 5 MG (NORVASC) TAB PO SCH (11:40)
[2019-06-17] MEDS: HYDROCORTISONE 1% CREAM 30 GM TUBE TOP SCH ×2 (12:00→22:03)
--- NOTE | 2019-06-17 12:30 | NUR ---
Pt reports having loose stool. Reglan held.
[2019-06-17 12:45] VITALS: BP 141/73
--- NOTE | 2019-06-17 14:00 | NUR ---
Pt requesting RN help limit visitors, d/t wanting to breastfeed infant and having difficulty. Will put Please Report to Nurse's Station sign on door. Encouraged pt to call for assistance with next feed. Reiterated importance of putting infant to breast or pumping q 2-3hrs. Suggested SNS, which pt says hot strip finisher suggested as well.
--- NOTE | 2019-06-17 21:00 | NUR ---
Pt up ambulating in sauer will evaluate BP after walk
[2019-06-17 21:45] VITALS: BP 178/89
--- NOTE | 2019-06-17 21:55 | NUR ---
Dr Brandt called Bp report order for medication received
[2019-06-17] MEDS ORDERED: amLODIPine 5 MG (NORVASC) TAB PO ONE (22:15)
[2019-06-17 23:47] VITALS: BP 151/72
[2019-06-18] VITALS (7 sets, daily range): BP systolic 158–190; BP diastolic 89–103
[2019-06-18] MEDS: IBUPROFEN 600 MG (MOTRIN) TAB PO SCH ×4 (02:18→22:07)
[2019-06-18] MEDS: METOCLOPRAMIDE 10 MG (REGLAN) TAB PO SCH ×3 (02:18→12:00)
[2019-06-18] MEDS: ACETAMINOPHEN 500 MG TAB (TYLENOL) PO SCH ×2 (05:38→16:51)
[2019-06-18] MEDS: metFORMIN 500 MG (GLUCOPHAGE) TAB PO SCH ×2 (07:48→16:58)
[2019-06-18] MEDS: LABETALOL 200 MG (NORMODYNE) TAB PO SCH (08:04)
[2019-06-18] MEDS: amLODIPine 5 MG (NORVASC) TAB PO SCH (08:04)
--- NOTE | 2019-06-18 09:51 | NUR ---
BP 181/92 prior to am BP meds. BP 1.5 hrs after Norvasc and Labetalol 190/103. Dr Brandt phoned - no answer, text paged. Addendum: 06/18/19 at 2039 by ANMOL PALOMARES RN Dr Brandt returned called and ordered Norvasc 5 mg.
[2019-06-18] MEDS ORDERED: amLODIPine 5 MG (NORVASC) TAB PO ONE (10:15)
--- NOTE | 2019-06-18 17:07 | NUR ---
Dr Brandt phoned regarding pt's continued elevated BP's. Extra Labetalol 200mg ordered. Pt has been tearful at times today regarding continued stay of infant. Mother at bedside and supportive. Pt aware of antidepressant to be given at bedtime.
[2019-06-18] MEDS ORDERED: LABETALOL 200 MG (NORMODYNE) TAB PO NR (17:15)
[2019-06-18] MEDS ORDERED: LABETALOL 200 MG (NORMODYNE) TAB PO SCH (21:00)
[2019-06-18] MEDS: DOCUSATE SODIUM 100 MG (COLACE) CAP PO SCH (21:00)
[2019-06-18] MEDS ORDERED: LABETALOL 200 MG (NORMODYNE) TAB PO ONE (21:15)
--- NOTE | 2019-06-18 21:20 | Postpartum Progress Note ---
Post Op Patient seen and examined at 1000 Post-operative Day #3 s/p PLTCS worsening bp issues. Nrovasc and Labetalol restarted after delivery. Increaed norvasc today. still with increaed bp. asymptomatic. Continues to diurese. Today is very tearful and crying. Baby is jaundiced. Subjective: Patient is without complaints. Ambulating, voiding after nur removed. Tolerating a regular diet without nausea or vomiting. Normal lochia. Pain is well controlled with oral pain medications. Passing flatus. breast feeding. Objective: VS - Last 72 Hours, by Label 06/15/19 06/15/19 06/15/19 06/15/19 21:25 21:40 23:35 23:50 Temp 36.86100 36.84653 36.77304 Pulse 96 100 Resp 18 18 18 18 B/P (MAP) 122/59 (80) 126/58 (80) Pulse Ox 97 98 99 99 O2 Delivery Room Air Room Air Room Air Room Air 06/16/19 06/16/19 06/16/19 06/16/19 00:05 00:20 00:35 01:36 Temp 36.89044 36.69920 36.06161 37.21295 Pulse 82 Resp 18 18 18 18 B/P (MAP) 144/86 (105) Pulse Ox 99 99 100 98 O2 Delivery Room Air Room Air Room Air Room Air 06/16/19 06/16/19 06/16/19 06/16/19 02:00 03:00 03:24 04:00 Temp 36.91912 Pulse 87 91 89 Resp 18 18 18 B/P (MAP) 139/84 (102) 139/86 (103) 133/84 (100) Pulse Ox 97 95 98 O2 Delivery Room Air Room Air 06/16/19 06/16/19 06/16/19 06/16/19 05:00 06:00 07:00 08:00 Temp 35.17611 Pulse 82 87 87 81 Resp 18 18 18 18 B/P (MAP) 144/87 (106) 121/78 (92) 124/81 (95) 124/78 (93) Pulse Ox 98 96 98 96 06/16/19 06/16/19 06/16/19 06/16/19 08:45 09:45 10:30 11:00 Pulse 81 82 83 84 Resp 18 18 18 18 B/P (MAP) 131/80 (97) 134/76 (95) 135/78 (97) 137/89 (105) Pulse Ox 99 98 98 96 06/16/19 06/16/19 06/16/19 06/17/19 15:30 18:04 22:10 02:00 Temp 36.48016 36.19083 36.53778 36.47356 Pulse 88 90 89 89 Resp 20 18 18 18 B/P (MAP) 142/83 (102) 144/88 (106) 140/76 (97) 143/81 (101) Pulse Ox 97 98 98 98 O2 Delivery Room Air Room Air Room Air Room Air 06/17/19 06/17/19 06/17/19 06/17/19 05:47 09:26 12:45 21:45 Temp 36.01403 36.52260 37.11209 37.03086 Pulse 87 77 82 88 Resp 18 18 20 20 B/P (MAP) 147/82 (103) 146/70 (95) 141/73 (95) 178/89 (118) Pulse Ox 98 98 98 97 O2 Delivery Room Air Room Air Room Air Room Air 06/17/19 06/18/19 06/18/19 06/18/19 23:47 03:38 07:48 09:15 Temp 36.05055 36.61883 36.30466 Pulse 78 76 78 79 Resp 20 18 18 16 B/P (MAP) 151/72 (98) 158/89 (112) 181/92 (121) 190/103 Pulse Ox 97 97 96 97 O2 Delivery Room Air Room Air Room Air Room Air 06/18/19 06/18/19 11:30 17:03 Temp 36.9 36.7 Pulse 83 92 Resp 18 16 B/P (MAP) 173/103 161/102 Pulse Ox 97 98 O2 Delivery Room Air 06/18/19 06/18/19 11:30 17:03 Temp 36.9 36.7 Pulse 83 92 Resp 18 16 B/P (MAP) 173/103 161/102 Pulse Ox 97 98 O2 Delivery Room Air 06/18/19 00:00 Intake Total 500 ml Output Total 900 ml Balance -400 ml Laboratory Tests Test 06/16/19 06:15 06/16/19 06:25 Range/Units White Blood Count 10.6 4.3-11.0 10^3/uL Red Blood Count 3.46 L 4.35-5.85 10^6/uL Hemoglobin 9.9 L 11.5-16.0 G/DL Hematocrit 29 L 35-52 % Mean Corpuscular Volume 84 80-99 FL Mean Corpuscular Hemoglobin 29 25-34 PG Mean Corpuscular Hemoglobin Concent 34 32-36 G/DL Red Cell Distribution Width 13.8 10.0-14.5 % Platelet Count 220 130-400 10^3/uL Mean Platelet Volume 9.9 7.4-10.4 FL Neutrophils (%) (Auto) 82 H 42-75 % Lymphocytes (%) (Auto) 10 L 12-44 % Monocytes (%) (Auto) 8 0-12 % Eosinophils (%) (Auto) 0 0-10 % Basophils (%) (Auto) 0 0-10 % Neutrophils # (Auto) 8.7 H 1.8-7.8 X 10^3 Lymphocytes # (Auto) 1.1 1.0-4.0 X 10^3 Monocytes # (Auto) 0.8 0.0-1.0 X 10^3 Eosinophils # (Auto) 0.0 0.0-0.3 10^3/uL Basophils # (Auto) 0.0 0.0-0.1 10^3/uL Sodium Level 131 L 135-145 MMOL/L Potassium Level 4.0 3.6-5.0 MMOL/L Chloride Level 104 98-107 MMOL/L Carbon Dioxide Level 17 L 21-32 MMOL/L Anion Gap 10 5-14 MMOL/L Blood Urea Nitrogen 15 7-18 MG/DL Creatinine 0.78 0.60-1.30 MG/DL Estimat Glomerular Filtration Rate > 60 BUN/Creatinine Ratio 19 Glucose Level 172 H 70-105 MG/DL Uric Acid 7.4 H 2.6-7.2 MG/DL Calcium Level 6.8 L 8.5-10.1 MG/DL Corrected Calcium 7.8 L 8.5-10.1 MG/DL Magnesium Level 6.2 *H 1.6-2.4 MG/DL Total Bilirubin 0.2 0.1-1.0 MG/DL Aspartate Amino Transf (AST/SGOT) 21 5-34 U/L Alanine Aminotransferase (ALT/SGPT) 15 0-55 U/L Alkaline Phosphatase 73 40-136 U/L Lactate Dehydrogenase 258 H 125-220 U/L Total Protein 5.4 L 6.4-8.2 GM/DL Albumin 2.7 L 3.2-4.5 GM/DL Thyroid Stimulating Hormone (TSH) 1.54 0.35-4.94 UIU/ML Physical Exam: General - Alert and oriented, no apparent distress Abdomen - Soft, appropriately tender to palpation, non-distended, fundus firm at umbilicus Incision - clean, dry and intact; no erythema or induration, no drainage Extremities - no edema, negative Medina's bilaterally [] Assessment: [] post-operative day # [], status post []. Recovering well, hemodynamically stable Acute blood loss anemia [] Plan: Routine post-operative care. Encourage breast feeding. Encourage ambulation. VTE prophylaxis: SCDs. Ferrous sulfate supplementation. Plan for discharge [] Vitals - Labs Vital Signs - I&O Vital Signs Date Time Temp Pulse Resp B/P (MAP) Pulse Ox O2 Delivery O2 Flow Rate FiO2 06/18/19 17:03 36.7 92 16 161/102 98 Room Air 06/18/19 11:30 36.9 83 18 173/103 97 06/18/19 09:15 79 16 190/103 97 Room Air 06/18/19 07:48 36.36760 78 18 181/92 (121) 96 Room Air 06/18/19 03:38 36.29897 76 18 158/89 (112) 97 Room Air 06/17/19 23:47 36.87054 78 20 151/72 (98) 97 Room Air 06/17/19 21:45 37.27030 88 20 178/89 (118) 97 Room Air I & O 06/18/19 07:00 Intake Total 700 ml Output Total 1800 ml Balance -1100 ml YUMIKO BENITEZ DO Jun 18, 2019 21:20
--- NOTE | 2019-06-18 22:00 | NUR ---
BP of 177/95 obtained. Will give scheduled labetalol and re-evaluate at 1 hour charles
[2019-06-18] MEDS: SERTRALINE 50 MG (ZOLOFT) TABLET PO SCH (22:07)
--- NOTE | 2019-06-18 23:40 | NUR ---
This RN called Dr Brandt at this time to notify of patient blood pressure 177/95, followed by labetalol administration and recheck of blood pressure 1 hr later of 169/90. No new orders received for current blood pressure management.
[2019-06-19] VITALS (12 sets, daily range): BP systolic 139–207; BP diastolic 71–116
[2019-06-19] MEDS: METOCLOPRAMIDE 10 MG (REGLAN) TAB PO SCH ×4 (00:05→21:50)
[2019-06-19] MEDS: ACETAMINOPHEN 500 MG TAB (TYLENOL) PO SCH ×3 (02:10→16:45)
--- NOTE | 2019-06-19 05:20 | NUR ---
Patient states she has been sweaty on and off through out night, reports having "little headache awhile ago, but it has been gone for awhile." Patient continues to ambulate to and from bathroom without difficulty. POC reviewed with patient and mother who has been at bedside throughout night. Call light within reach. Will obtain vs shortly.
[2019-06-19] MEDS ORDERED: amLODIPine 10 MG (NORVASC) TAB ONE (05:23)
[2019-06-19] MEDS: IBUPROFEN 600 MG (MOTRIN) TAB PO SCH (05:25)
--- NOTE | 2019-06-19 05:25 | NUR ---
B/P obtained at this time, see intervention for details. Outside of 160/110 parameters. Will give 0900 morning medications for blood pressure and reevaluate blood pressure at 1 hour charles.
[2019-06-19] MEDS ORDERED: meTOprolol SUCCINATE 100 MG (TOPROL XL) TAB PO ONE ×2 (05:32→20:37)
[2019-06-19] MEDS: amLODIPine 10 MG (NORVASC) TAB PO SCH (05:33)
--- NOTE | 2019-06-19 06:58 | NUR ---
This RN attempted to call Dr Brandt to notify of latest blood pressures. No answer.
--- NOTE | 2019-06-19 08:34 | Postpartum Progress Note ---
Post Op Post-operative Day #4 s/p PLTCS Having worsening BP overnight. complains of left hand swelling, having sweating and now with a headache. Had started metoprolol 100 mg xl this am and 10 g norvasc but most recent bp is 188/101. She is lying in bed with wet towel oer forehead. states no headache currenlty. no blurred vision, no CP, no SOA. Has bee ablating and scds when in bed or sleeping. Subjective: Patient is with above complaints. Ambulating, voiding after nur removed. Tolerating a regular diet without nausea or vomiting. Normal lochia. Pain is well controlled with oral pain medications. Passing flatus. pumping and bottle feeding. states she is voiding frequently Objective: 06/18/19 06/18/19 06/18/19 06/19/19 22:00 23:31 23:42 05:25 Temp 36.7 37.1 36.6 Pulse 81 91 87 Resp 18 18 B/P (MAP) 177/95 169/90 188/101 Pulse Ox 100 98 95 O2 Delivery Room Air Room Air Room Air 06/19/19 06:45 B/P (MAP) 169/90 Physical Exam: General - Alert and oriented, no apparent distress Abdomen - Soft, appropriately tender to palpation, non-distended, fundus firm at umbilicus Incision - clean, dry and intact; no erythema or induration, no drainage Extremities - left had with edema, no redness, no pain. Suspect phlebitis. negative Medina's bilaterally. [] Assessment: 1. post-operative day # 4 status post pltcs Recovering well, hemodynamically stable 2. chronic htn with superimposed preeclampsia now with worsening bp 3. hypothyroid back on supplementation 4. DM back on metformin 5. Acute blood loss anemia 6. phlebitis. Plan: Routine post-operative care. Encourage breast feeding. Encourage ambulation. VTE prophylaxis: SCDs. Ferrous sulfate supplementation. Plan for discharge held today but will consider this afternoon Discussed with Dr Guzman and he suggested starting hydralazine 10:30. BP is worse. Considered restarting the magnesium, but she doesnt need diuresis. She has IV now so will give IV labetalol and consider consultation. DC held today. Vitals - Labs Vital Signs - I&O Vital Signs Date Time Temp Pulse Resp B/P (MAP) Pulse Ox O2 Delivery O2 Flow Rate FiO2 06/19/19 06:45 169/90 06/19/19 05:25 36.6 87 18 188/101 95 Room Air 06/18/19 23:42 37.1 98 Room Air 06/18/19 23:31 91 169/90 06/18/19 22:00 36.7 81 18 177/95 100 Room Air 06/18/19 17:03 36.7 92 16 161/102 98 Room Air 06/18/19 11:30 36.9 83 18 173/103 97 06/18/19 09:15 79 16 190/103 97 Room Air Labs Laboratory Tests 06/19/19 06:53: Glucometer 112H YUMIKO BENITEZ DO Jun 19, 2019 08:34
[2019-06-19] MEDS: hydrALAZINE (APRESOLINE) 25 MG TAB PO NR (08:35)
[2019-06-19] MEDS: DOCUSATE SODIUM 100 MG (COLACE) CAP PO SCH ×2 (08:35→21:49)
[2019-06-19] MEDS: metFORMIN 500 MG (GLUCOPHAGE) TAB PO SCH ×2 (08:35→18:15)
[2019-06-19] MEDS: HYDROCORTISONE 1% CREAM 30 GM TUBE TOP SCH ×2 (09:00→20:47)
[2019-06-19] MEDS ORDERED: meTOprolol SUCCINATE 100 MG (TOPROL XL) TAB PO SCH (09:00)
[2019-06-19] MEDS ORDERED: LABETALOL 200 MG (NORMODYNE) TAB PO ONE (09:00)
[2019-06-19] MEDS ORDERED: AMLO10TA7 PO (09:09)
[2019-06-19] MEDS ORDERED: ACET-77 PO (09:09)
[2019-06-19] MEDS ORDERED: OXC5T PO (09:09)
[2019-06-19] MEDS ORDERED: SERT50TA9 PO (09:09)
[2019-06-19] MEDS ORDERED: HYDR-3922 PO (09:09)
[2019-06-19] MEDS ORDERED: METF-397 PO (09:09)
[2019-06-19] MEDS ORDERED: DOCU100C37 PO (09:09)
[2019-06-19] MEDS ORDERED: METO-395 PO (09:09)
--- NOTE | 2019-06-19 09:13 | Discharge Inst-Women's Service ---
Discharge Inst-Women's Serv Depart Medication/Instructions New, Converted or Re-Newed RX: RX on Chart Instructions no lifting over 25 lbs no driving for 1 weeks nothing in the vagina for 6 weeks Final Diagnosis chronic hypertension with superimposed preeclampsia Gestational diabetes, B GBS + Hypothyroid Primary section Arrest of dilation OP presentation Acute blood loss anemia Problems Reviewed?: Yes Consults/Follow Up Additional Follow Up: Yes (1 week with Holly/Rikki; 6 weeks with Rikki/Gerald) Activity Activity: Activity as Tolerated Driving Instructions: No Driving for 1 Week NO SMOKING: NO SMOKING Nothing Inside Vagina: No Douching, No [place], No Tampons Diet Discharge Diet: ADA Diet (2000 kcal) Symptoms to Report to : Swelling Increased, Bleeding Excessive, Fever Over 101 Degrees F, Pain/Pressure in Chest, Vaginal Bleeding Increase, Cramps in Feet or Legs, Vaginal Discharge Foul For Any Problems or Questions: Contact Your Physician, Go to Emergency Room Skin/Wound Care Infection Signs and Symptoms: Increased Redness, Foul Odor of Wound, Increased Drainage, Skin Itchy or Has a Rash, Increased Swelling, Temperature Above 101 F Operative Area Clean and Dry: Do Not Remove Bandage, Keep Incision Clean/Dry Stitches/Frida/Dermabond: Dermabond, Care of Stitches Bathing Instructions: YUMIKO Larson DO Jun 19, 2019 09:13
[2019-06-19] MEDS ORDERED: BLOO-729 MC (09:28)
[2019-06-19] MEDS: LEVOTHYROXINE 75 MCG (LEVOTHROID) TABLET PO SCH (09:50)
[2019-06-19] MEDS ORDERED: CALCIUM GLUC. 10% 4.65 MEQ/10 ML VIAL IV PRN (10:30)
[2019-06-19] MEDS ORDERED: MAGNESIUM 4 GM/100 ML IVPB 100 ML IV NR (10:30)
[2019-06-19] MEDS ORDERED: LABETALOL HCL 100 MG/20 ML VIAL IV NR (10:45)
[2019-06-19] MEDS ORDERED: LABETALOL HCL 20 MG/4 ML VIAL IV NR (10:45)
[2019-06-19] MEDS ORDERED: MAGNESIUM SULFATE DRIP 500 ML IV SCH (10:55)
[2019-06-19 11:19] LABS: BASOPHILS % (AUTO) 0 % (0-10); EOSINOPHILS # (AUTO) 0.2 10^3/uL (0.0-0.3); EOSINOPHILS % (AUTO) 3 % (0-10); HEMATOCRIT 31 % (35-52); HEMOGLOBIN 10.2 G/DL (11.5-16.0); LYMPHOCYTES # (AUTO) 1.4 X 10^3 (1.0-4.0); LYMPHOCYTES % (AUTO) 15 % (12-44); MEAN CORPUSCULAR HEMOGLOBIN 28 PG (25-34); MEAN CORPUSCULAR HGB CONC 33 G/DL (32-36); MEAN CORPUSCULAR VOLUME 85 FL (80-99); MEAN PLATELET VOLUME 9.5 FL (7.4-10.4); MONOCYTES # (AUTO) 0.5 X 10^3 (0.0-1.0); MONOCYTES % (AUTO) 5 % (0-12); NEUTROPHILS # (AUTO) 7.1 X 10^3 (1.8-7.8); NEUTROPHILS % (AUTO) 77 % (42-75); PLATELET COUNT 298 10^3/uL (130-400); RED CELL DISTRIBUTION WIDTH 14.2 % (10.0-14.5); WHITE BLOOD COUNT 9.3 10^3/uL (4.3-11.0)
[2019-06-19 11:40] LABS: ALANINE AMINOTRANSFERASE 19 U/L (0-55); ALBUMIN 3.4 GM/DL (3.2-4.5); ALKALINE PHOSPHATASE 84 U/L (40-136); BILIRUBIN,TOTAL 0.2 MG/DL (0.1-1.0); BUN/CREATININE RATIO 12; CALCIUM 10.4 MG/DL (8.5-10.1); CARBON DIOXIDE 25 MMOL/L (21-32); CHLORIDE 103 MMOL/L (98-107); CREATININE SERUM 0.86 MG/DL (0.60-1.30); GFR ESTIMATED > 60; GLUCOSE 147 MG/DL (70-105); POTASSIUM 4.2 MMOL/L (3.6-5.0); SODIUM 138 MMOL/L (135-145); TOTAL PROTEIN 6.5 GM/DL (6.4-8.2); URIC ACID 6.6 MG/DL (2.6-7.2)
[2019-06-19 11:55] LABS: MAGNESIUM 1.1 MG/DL (1.6-2.4)
[2019-06-19] MEDS ORDERED: D5 1/2 NS W/KCL 40 MEQ/L 1,000 ML IV SCH (13:45)
[2019-06-19] MEDS ORDERED: hydrALAZINE (APESOLINE) 20 MG/ML VIAL IV ONE ×2 (13:45)
[2019-06-19] MEDS ORDERED: hydrALAZINE (APESOLINE) 20 MG/ML VIAL ONE (13:53)
[2019-06-19] MEDS ORDERED: hydrALAZINE (APESOLINE) 20 MG/ML VIAL IV NR ×2 (14:00→19:30)
--- NOTE | 2019-06-19 15:15 | NUR ---
dr jordan notified of patient current bp. no new orders at this time.
--- NOTE | 2019-06-19 16:00 | Consultation-Cardiology ---
HPI-Cardiology Cardiology Consultation Date of Consultation 06/19/19 Date of Admission Time Seen by Provider: 15:54 HPI Patient is a 23 y/o female with history of HTN, DM, Hypothyroidism. Underwent c- section on 06/15/19. Blood pressure has been difficult to control over the past 48 hours. Denies any chest pain or dyspnea. c/o FINK earlier today with elevated blood pressure. Denies any previous cardiac history. Currently feeling well. Home Medications & Allergies Allergies: Coded Allergies: Penicillins (Verified Allergy, Mild, 06/14/19) Hot/flushed/heart racing Pork/Porcine Containing Products (Verified Allergy, Unknown, 06/14/19) Home Medication List Reviewed: Yes [id number] Hx Patient Social History Alcohol Use: Denies Use Recreational Drug Use: No Smoking Status: Never a Smoker Recent Foreign Travel: No Recent Hopitalizations: No Physical Abuse Screen: No Sexual Abuse: No Past Medical History HTN, DM, Obesity, Hypothyroidism. Family Medical History Significant Family History: No Pertinent Family Hx Family History: Diabetes mellitus 19 FATHER FH: hyperlipidemia 19 FATHER FH: hypothyroidism 19 MOTHER Hypertension 19 FATHER Review of Systems-General Review of Systems Constitutional: see HPI, diaphoresis, malaise EENTM: see HPI; No blurred vision, No double vision, No vision loss Respiratory: No cough, No dyspnea on exertion, No short of breath Cardiovascular: No chest pain; edema (bilat hand edema); No palpitations Gastrointestinal: No abdominal pain, No constipation, No diarrhea Genitourinary: no symptoms reported Expected Date of Delivery: Jul 08, 2019 Musculoskeletal: No back pain, No joint pain Skin: No lesions, No rash Psychiatric/Neurological: Denies Anxiety, Denies Depressed Reviewed Test Results Reviewed Test Results Lab Laboratory Tests 06/19/19 06:53: Glucometer 112H 06/19/19 11:10: White Blood Count 9.3, Red Blood Count 3.63L, Hemoglobin 10.2L, Hematocrit 31L, Mean Corpuscular Volume 85, Mean Corpuscular Hemoglobin 28, Mean Corpuscular Hemoglobin Concent 33, Red Cell Distribution Width 14.2, Platelet Count 298, Mean Platelet Volume 9.5, Neutrophils (%) (Auto) 77H, Lymphocytes (%) (Auto) 15, Monocytes (%) (Auto) 5, Eosinophils (%) (Auto) 3, Basophils (%) (Auto) 0, Neutrophils # (Auto) 7.1, Lymphocytes # (Auto) 1.4, Monocytes # (Auto) 0.5, Eosinophils # (Auto) 0.2, Basophils # (Auto) 0.0, Sodium Level 138, Potassium Level 4.2, Chloride Level 103, Carbon Dioxide Level 25, Anion Gap 10, Blood Urea Nitrogen 10, Creatinine 0.86, Estimat Glomerular Filtration Rate > 60, BUN/Creatinine Ratio 12, Glucose Level 147H, Uric Acid 6.6, Calcium Level 10.4H, Corrected Calcium 10.9H, Magnesium Level 1.1*L, Total Bilirubin 0.2, Aspartate Amino Transf (AST/SGOT) 21, Alanine Aminotransferase (ALT/SGPT) 19, Alkaline Phosphatase 84, Total Protein 6.5, Albumin 3.4 Physical Exam Physical Exam Vital Signs Vital Signs - First Documented 06/14/19 06/15/19 14:55 12:10 Temp 35.27782 Pulse 98 Resp 20 B/P (MAP) 183/122 (142) Pulse Ox 98 O2 Delivery Room Air O2 Flow Rate 10.00 Capillary Refill : Height, Weight, BMI Height: 5'5.00" Weight: 287lbs. 0.4oz. 130.560810ie; 47.8 BMI Method: General Appearance: No Apparent Distress, WD/WN HEENT: PERRL/EOMI, Normal ENT Inspection Neck: Full Range of Motion, Non Tender, Supple Respiratory: Chest Non Tender, Lungs Clear, Normal Breath Sounds Cardiovascular: Regular Rate, Rhythm Gastrointestinal: Non Tender, Soft Rectal: Normal Exam, Deferred Back: No CVA Tenderness Extremity: Non Tender, No Calf Tenderness Neurologic/Psychiatric: Alert, Oriented x3, journeyman painter II-XII Norm as Tested Skin: Normal Color, Warm/Dry Lymphatic: No Adenopathy A/P-Cardiology Admission Diagnosis HTN Preeclampsia DM Hypothyroidism Obesity Assessment/Plan HTN, difficult to control. Currently on Toprol XL 100mg daily, Norvasc 10mg daily. Has received PO hydralazine, IV hydralazine, and IV labetalol today. Currently BP is better controlled with SBP in the 130's. I will evaluate EKG, 2D Echo. Continue to monitor. labor at 36 5/7 weeks,s/p on 06/15/19 Preeclampsia DM- Management by PCP Hypothyroidism- restart synthroid Hypomagnesemia- replace, continue to monitor. Obesity Thank you for allowing us to participate in the management of Ms. Elmore. This is Elizabeth Vela PA-C, as a scribe for Dr. Guzman. This is Dr. Guzman, I have seen and evaluated the patient with Elizabeth, she has resistant hypertension on multiple medication. I continued with her current medication added lisinopril 20 mg daily. Evaluate 2-D echocardiogram and monitor tolerance and response. Clinical Quality Measures DVT/VTE Risk/Contraindication: Risk Factor Score Per Nursin RFS Level Per Nursing on Admit: 2=Moderate ELIZABETH DUBON Jun 19, 2019 16:00 ALEXEY GUZMAN MD Jun 20, 2019 11:33
--- NOTE | 2019-06-19 17:46 | NUR ---
EKG in process at bedside.
[2019-06-19] MEDS ORDERED: hydrALAZINE (APRESOLINE) 25 MG TAB PO SCH ×2 (18:00→22:00)
--- NOTE | 2019-06-19 20:36 | NUR ---
Called Dr. Brandt to notify BP 184/104 & update given, new orders rc'd to give Hydralazine 50 mg PO & Toprol XL 100 mg PO now, then recheck BP in 1 hr. POC reviewed w/pt & mother, both verbalized understanding, will give meds.
[2019-06-19] MEDS: hydrALAZINE (APRESOLINE) 25 MG TAB PO SCH (20:47)
[2019-06-19] MEDS: meTOprolol SUCCINATE 100 MG (TOPROL XL) TAB PO SCH (20:47)
[2019-06-19] MEDS: SERTRALINE 50 MG (ZOLOFT) TABLET PO SCH (20:47)
[2019-06-19] MEDS ORDERED: meTOprolol TARTRATE 50 MG (LOPRESSOR) TAB PO NR (21:00)
--- NOTE | 2019-06-19 21:44 | NUR ---
Dr. Brandt called, entering new orders from home.
--- NOTE | 2019-06-19 22:03 | NUR ---
Notified Dr. Brandt of BP 164/83 & pt. asymptomatic, no new orders rc'd, will cont. to monitor & recheck BP in 6 hrs per protocol.
[2019-06-19] MEDS: MAGNESIUM OXIDE (MAG-OX)400 MG TAB PO SCH (22:31)
[2019-06-20] VITALS (7 sets, daily range): BP systolic 149–197; BP diastolic 86–99
[2019-06-20] MEDS: ACETAMINOPHEN 500 MG TAB (TYLENOL) PO SCH ×4 (00:54→21:18)
[2019-06-20] MEDS: hydrALAZINE (APRESOLINE) 25 MG TAB PO SCH ×4 (02:58→21:19)
--- NOTE | 2019-06-20 03:05 | NUR ---
Called Dr. Brandt to notify of pt's BP, no new orders rc'd.
[2019-06-20] MEDS: METOCLOPRAMIDE 10 MG (REGLAN) TAB PO SCH ×3 (06:05→18:00)
[2019-06-20 06:25] LABS: MAGNESIUM 1.4 MG/DL (1.6-2.4)
[2019-06-20] MEDS: LEVOTHYROXINE 75 MCG (LEVOTHROID) TABLET PO SCH (06:31)
[2019-06-20] MEDS: metFORMIN 500 MG (GLUCOPHAGE) TAB PO SCH ×2 (06:31→17:30)
[2019-06-20] MEDS: amLODIPine 10 MG (NORVASC) TAB PO SCH (08:07)
[2019-06-20] MEDS: MAGNESIUM OXIDE (MAG-OX)400 MG TAB PO SCH ×3 (08:07→21:19)
[2019-06-20] MEDS: DOCUSATE SODIUM 100 MG (COLACE) CAP PO SCH (09:00)
[2019-06-20] MEDS: HYDROCORTISONE 1% CREAM 30 GM TUBE TOP SCH ×2 (09:00→21:19)
[2019-06-20] MEDS ORDERED: ONDANSETRON 4 MG/2 ML (SDV) Z0FRAN ONE (09:22)
[2019-06-20] MEDS: meTOprolol SUCCINATE 100 MG (TOPROL XL) TAB PO SCH (09:25)
[2019-06-20] MEDS ORDERED: ONDANSETRON 4 MG/2 ML (SDV) Z0FRAN IVP ONE (09:30)
[2019-06-20] MEDS: lisINopril 20 MG (PRINIVIL) TABLET PO SCH (09:49)
[2019-06-20] MEDS ORDERED: MAGN400T6 PO (14:34)
[2019-06-20] MEDS ORDERED: LISI-552 PO (14:34)
--- NOTE | 2019-06-20 15:30 | NUR ---
dr mirtha NICHOLSON and dr jordan notified of recent BP check. no further orders at this time.
--- NOTE | 2019-06-20 16:46 | Postpartum Progress Note ---
Post Op Post-operative Day #5 s/p PLTCS Resistant HTN. Appreciate cardiology input. Subjective: Patient is without complaints. Ambulating, voiding after nur removed. Tolerating a regular diet without nausea or vomiting. Normal lochia. Pain is well controlled with oral pain medications. Passing flatus. [] feeding. [] Objective: [] Physical Exam: General - Alert and oriented, no apparent distress Abdomen - Soft, appropriately tender to palpation, non-distended, fundus firm at umbilicus Incision - clean, dry and intact; no erythema or induration, no drainage Extremities - no edema, negative Medina's bilaterally [] Assessment: [] post-operative day # [], status post []. Recovering well, hemodynamically stable Acute blood loss anemia [] Plan: Routine post-operative care. Encourage breast feeding. Encourage ambulation. VTE prophylaxis: SCDs. Ferrous sulfate supplementation. Plan for discharge [] Vitals - Labs Vital Signs - I&O Vital Signs Date Time Temp Pulse Resp B/P (MAP) Pulse Ox O2 Delivery O2 Flow Rate FiO2 06/20/19 14:00 91 18 172/86 Room Air 06/20/19 11:00 107 18 176/86 Room Air 06/20/19 09:15 37.3 84 18 197/99 96 Room Air 06/20/19 03:02 86 18 172/88 97 Room Air 06/20/19 02:58 36.5 88 18 186/98 97 Room Air 06/19/19 22:00 36.4 95 18 164/83 96 Room Air 06/19/19 20:35 37.4 99 18 185/104 96 Room Air 06/19/19 16:50 99 18 166/87 Room Air 06/19/19 15:00 37.6 107 18 139/71 Room Air I & O 06/20/19 07:00 Intake Total 1600 ml Balance 1600 ml Labs Laboratory Tests 06/20/19 06:00: Glucose Level 101, Magnesium Level 1.4L YUMIKO BENITEZ DO Jun 20, 2019 4:46 pm
[2019-06-20] MEDS: SERTRALINE 50 MG (ZOLOFT) TABLET PO SCH (21:19)
[2019-06-21 03:29] VITALS: BP 176/93
[2019-06-21] MEDS: hydrALAZINE (APRESOLINE) 25 MG TAB PO SCH ×4 (03:29→20:55)
--- NOTE | 2019-06-21 03:38 | NUR ---
Called Dr. Brandt to notify of pt's BP, update given, no new orders rc'd. Will recheck BP in 6 hrs per protocol.
[2019-06-21] MEDS: ACETAMINOPHEN 500 MG TAB (TYLENOL) PO SCH ×2 (05:09→15:25)
[2019-06-21] MEDS: DOCUSATE SODIUM 100 MG (COLACE) CAP PO SCH ×3 (05:14→21:05)
[2019-06-21] MEDS: METOCLOPRAMIDE 10 MG (REGLAN) TAB PO SCH ×4 (05:14→21:04)
[2019-06-21] MEDS: LEVOTHYROXINE 75 MCG (LEVOTHROID) TABLET PO SCH (06:55)
--- NOTE | 2019-06-21 07:45 | NUR ---
Dr. Guzman here to check on pt. Order to check BP ESTELA and call prior to giving clonidine.
[2019-06-21 07:55] VITALS: BP 194/108
--- NOTE | 2019-06-21 08:03 | NUR ---
Dr. Guzman called and notified of BP. Order to give Clonidine now.
[2019-06-21] MEDS: cloNIDine 0.1 MG (CATAPRES) TAB PO SCH ×2 (08:11→20:55)
[2019-06-21] MEDS: amLODIPine 10 MG (NORVASC) TAB PO SCH (08:11)
[2019-06-21] MEDS: metFORMIN 500 MG (GLUCOPHAGE) TAB PO SCH ×2 (08:11→17:43)
[2019-06-21] MEDS: lisINopril 20 MG (PRINIVIL) TABLET PO SCH (08:11)
[2019-06-21] MEDS: meTOprolol SUCCINATE 100 MG (TOPROL XL) TAB PO SCH (08:11)
--- NOTE | 2019-06-21 08:16 | NUR ---
Dr. Guzman's nurse practitioner here to see pt. Plan for discharge if can go. Will watch throughout day.
[2019-06-21] MEDS ORDERED: CLON0.1T PO (08:46)
--- NOTE | 2019-06-21 08:55 | Postpartum Progress Note ---
Post Op Post-operative Day #6 s/p PLTCS Continues to feel better but blood pressures are not controlled chronic hypertension, not well controlled but on maximum blood pressure medications. She is also very anxious. Spoke with Dr. Guzman who thinks it is ok to DC home but states that anxiety may have more or an effect than realized. Will dc home. Baby may not go home, so if he does not, patient will be dc'd tomorrow. I am going to a conference so care checked out to the care team, but will defer DC to Megan if patient stays. Surgically she is stable and ready to be discharged to home. Subjective: Patient is without complaints. Ambulating, voiding after nur removed. Tolerating a regular diet without nausea or vomiting. Normal lochia. Pain is well controlled with oral pain medications. Passing flatus. bottle (has stopped pumping due to anxiety and blood pressures) feeding. Objective: 06/20/19 06/21/19 06/21/19 21:18 03:29 07:55 Temp 37.5 36.4 37.5 Pulse 95 88 91 Resp 18 18 18 B/P (MAP) 149/89 176/93 194/108 Pulse Ox 97 96 97 O2 Delivery Room Air Room Air Laboratory Tests Test 06/19/19 06:53 06/19/19 11:10 06/20/19 06:00 Range/Units Glucometer 112 H 70-110 MG/DL White Blood Count 9.3 4.3-11.0 10^3/uL Red Blood Count 3.63 L 4.35-5.85 10^6/uL Hemoglobin 10.2 L 11.5-16.0 G/DL Hematocrit 31 L 35-52 % Mean Corpuscular Volume 85 80-99 FL Mean Corpuscular Hemoglobin 28 25-34 PG Mean Corpuscular Hemoglobin Concent 33 32-36 G/DL Red Cell Distribution Width 14.2 10.0-14.5 % Platelet Count 298 130-400 10^3/uL Mean Platelet Volume 9.5 7.4-10.4 FL Neutrophils (%) (Auto) 77 H 42-75 % Lymphocytes (%) (Auto) 15 12-44 % Monocytes (%) (Auto) 5 0-12 % Eosinophils (%) (Auto) 3 0-10 % Basophils (%) (Auto) 0 0-10 % Neutrophils # (Auto) 7.1 1.8-7.8 X 10^3 Lymphocytes # (Auto) 1.4 1.0-4.0 X 10^3 Monocytes # (Auto) 0.5 0.0-1.0 X 10^3 Eosinophils # (Auto) 0.2 0.0-0.3 10^3/uL Basophils # (Auto) 0.0 0.0-0.1 10^3/uL Sodium Level 138 135-145 MMOL/L Potassium Level 4.2 3.6-5.0 MMOL/L Chloride Level 103 98-107 MMOL/L Carbon Dioxide Level 25 21-32 MMOL/L Anion Gap 10 5-14 MMOL/L Blood Urea Nitrogen 10 7-18 MG/DL Creatinine 0.86 0.60-1.30 MG/DL Estimat Glomerular Filtration Rate > 60 BUN/Creatinine Ratio 12 Glucose Level 147 H 101 70-105 MG/DL Uric Acid 6.6 2.6-7.2 MG/DL Calcium Level 10.4 H 8.5-10.1 MG/DL Corrected Calcium 10.9 H 8.5-10.1 MG/DL Magnesium Level 1.1 *L 1.4 L 1.6-2.4 MG/DL Total Bilirubin 0.2 0.1-1.0 MG/DL Aspartate Amino Transf (AST/SGOT) 21 5-34 U/L Alanine Aminotransferase (ALT/SGPT) 19 0-55 U/L Alkaline Phosphatase 84 40-136 U/L Total Protein 6.5 6.4-8.2 GM/DL Albumin 3.4 3.2-4.5 GM/DL Physical Exam: General - Alert and oriented, no apparent distress Abdomen - Soft, appropriately tender to palpation, non-distended, fundus firm at umbilicus Incision - clean, dry and intact; no erythema or induration, no drainage Extremities - no edema, negative Medina's bilaterally Assessment: 1. post-operative day # 6 status post pltcs Recovering well, hemodynamically stable 2. chronic htn with superimposed preeclampsia now with worsening bp 3. hypothyroid back on supplementation 4. DM back on metformin 5. Acute blood loss anemia 6. phlebitis, improving 7. hypomagnesemia Plan: Routine post-operative care. Norvasc, Toprol, hydralazine, clonidine - follow up with Megan on Yessy Continue meds for diabetes, diabetic diet Iron synthroid Magnesium replacement Encourage ambulation. VTE prophylaxis: SCDs. Plan for discharge today or tomorrow if baby stays Vitals - Labs Vital Signs - I&O Vital Signs Date Time Temp Pulse Resp B/P (MAP) Pulse Ox O2 Delivery O2 Flow Rate FiO2 06/21/19 07:55 37.5 91 18 194/108 97 06/21/19 03:29 36.4 88 18 176/93 96 Room Air 06/20/19 21:18 37.5 95 18 149/89 97 Room Air 06/20/19 15:15 101 18 162/88 Room Air 06/20/19 14:00 91 18 172/86 Room Air 06/20/19 11:00 107 18 176/86 Room Air 06/20/19 09:15 37.3 84 18 197/99 96 Room Air I & O 06/21/19 07:00 Intake Total 700 ml Balance 700 ml YUMIKO BENITEZ DO Jun 21, 2019 08:55
[2019-06-21] MEDS: HYDROCORTISONE 1% CREAM 30 GM TUBE TOP SCH ×3 (09:00→21:06)
--- NOTE | 2019-06-21 09:35 | Cardiology Progress Note ---
Subjective Date Seen by Provider: Jun 21, 2019 Time Seen by Provider: 08:15 Subjective/Events-last exam Patient sitting up in bed, blood pressure elevated this morning. Denies any chest pain or dyspnea. Objective-Cardiology Exam Last Set of Vital Signs Vital Signs 06/15/19 06/21/19 06/21/19 18:23 03:29 07:55 Temp 37.5 Pulse 91 Resp 18 B/P (MAP) 194/108 Pulse Ox 97 O2 Delivery Room Air O2 Flow Rate 10.00 Capillary Refill : I&O l Intake and Output 06/21/19 00:00 Intake Total 800 ml Balance 800 ml Intake Oral 800 ml # Voids 4 General: Alert, Oriented X3, Cooperative HEENT: Atraumatic, PERRLA Neck: Supple, No JVD, No Thyromegaly Lungs: Clear to Auscultation, Normal Air Movement Heart: Regular Rate, Normal S1, Normal S2, No Murmurs Abdomen: Normal Bowel Sounds, Soft, No Tenderness, No Hepatosplenomegaly, No Masses Extremities: No Clubbing, No Cyanosis, No Edema, Normal Pulses, No Tenderness/Swelling Skin: No Rashes, No Breakdown, No Significant Lesion Neuro: Normal Gait, Normal Speech, Strength at 5/5 X4 Ext, Normal Tone, Sensation Intact Psych/Mental Status: Mental Status NL, Mood NL A/P-Cardiology Admission Diagnosis HTN Preeclampsia DM Hypothyroidism Obesity Assessment/Plan HTN, difficult to control. Currently on Toprol XL 100mg daily, Norvasc 10mg daily, hydralazine, clonidine. Continue on current medication and continue to monitor. labor at 36 5/7 weeks,s/p on 06/15/19 Preeclampsia DM- Management by PCP Hypothyroidism-maintained on synthroid Hypomagnesemia- replaced, improved, continue to monitor. Obesity OK for discharge from cardiology standpoint. F/u in our office next . Continue to check BP daily at home. This is Dr. Guzman, I discussed the management plan with Elizabeth and with Dr. Brandt, patient have severe hypertension, resistant to multiple medication. I'll continue on Toprol-XL 100 mg daily, Norvasc 10 mg daily, hydralazine 50 mg and adding clonidine 0.1 milligrams twice daily, instructed the patient to monitor her blood pressure closely at home and I will arrange for follow-up in my office next week. Clinical Quality Measures DVT/VTE Risk/Contraindication: Risk Factor Score Per Nursin RFS Level Per Nursing on Admit: 2=Moderate ELIZABETH DUBON Jun 21, 2019 09:35 ALEXEY GUZMAN MD Jun 21, 2019 09:51
[2019-06-21] MEDS: MAGNESIUM OXIDE (MAG-OX)400 MG TAB PO SCH ×2 (09:50→17:43)
[2019-06-21 13:30] VITALS: BP 147/89
[2019-06-21 13:35] VITALS: BP 147/89
--- NOTE | 2019-06-21 15:00 | NUR ---
Nae Vela APRN (Dr. Guzman's Nurse Practitioner) updated that will be staying overnight, and latest BP. Plan to keep pt inpatient overnight as well.
--- NOTE | 2019-06-21 15:30 | NUR ---
Dr. Brandt updated on pt cares and staying overnight. No new orders rec'd.
--- NOTE | 2019-06-21 15:45 | NUR ---
Report to Dennis Stafford RN
--- NOTE | 2019-06-21 16:30 | NUR ---
CARING FOR INFANT IN ROOM. PT'S MOTHER AT BEDSIDE. DENIES ANY WANTS OR NEEDS.
[2019-06-21 17:30] VITALS: BP 164/91
--- NOTE | 2019-06-21 17:30 | NUR ---
PT SITTING UP IN THE BED CROSS-LEGGED FINISHING MEAL. BP ELEVATED. ENCOURAGED PT TO REST FOR AWHILE AND WILL RECHECK BP.
[2019-06-21 18:20] VITALS: BP 167/94
--- NOTE | 2019-06-21 18:20 | NUR ---
PT HAS SEVERAL VISITORS. BP REMAINS ELEVATED. WILL RECHECK AGAIN WHEN PT ISN'T SO OCCUPIED. FACE FLUSHED.
--- NOTE | 2019-06-21 18:59 | NUR ---
DR. BENITEZ NOTIFIED OF PT'S BP.
[2019-06-21] MEDS: SERTRALINE 50 MG (ZOLOFT) TABLET PO SCH (20:55)
[2019-06-22 00:18] VITALS: BP 154/99
[2019-06-22] MEDS: ACETAMINOPHEN 500 MG TAB (TYLENOL) PO SCH ×2 (00:18→08:12)
[2019-06-22] MEDS: METOCLOPRAMIDE 10 MG (REGLAN) TAB PO SCH (00:22)
[2019-06-22] MEDS: hydrALAZINE (APRESOLINE) 25 MG TAB PO SCH ×3 (03:18→13:38)
[2019-06-22 06:33] VITALS: BP 156/92
[2019-06-22] MEDS: metFORMIN 500 MG (GLUCOPHAGE) TAB PO SCH (06:33)
[2019-06-22] MEDS: LEVOTHYROXINE 75 MCG (LEVOTHROID) TABLET PO SCH (06:33)
[2019-06-22 08:00] VITALS: BP 151/89
--- NOTE | 2019-06-22 08:00 | NUR ---
A.M. ASSESSMENT COMPLETED. VSS. RESTING WHEN ENTERED ROOM. ALREADY ATE BREAKFAST. PT'S MOTHER AT BEDSIDE CARING FOR . HOPING OT GO HOME TODAY.
[2019-06-22] MEDS: MAGNESIUM OXIDE (MAG-OX)400 MG TAB PO SCH (08:09)
[2019-06-22] MEDS: lisINopril 20 MG (PRINIVIL) TABLET PO SCH (08:10)
[2019-06-22] MEDS: cloNIDine 0.1 MG (CATAPRES) TAB PO SCH (08:10)
[2019-06-22] MEDS: meTOprolol SUCCINATE 100 MG (TOPROL XL) TAB PO SCH (08:11)
[2019-06-22] MEDS: amLODIPine 10 MG (NORVASC) TAB PO SCH (08:11)
[2019-06-22 08:45] VITALS: BP 167/96
--- NOTE | 2019-06-22 09:44 | NUR ---
ALVAREZ GARCIA HERE TO SEE PT. PLAN FOR DISCHARGE.
--- NOTE | 2019-06-22 09:44 | Postpartum Progress Note ---
Post Op Post-operative Day #7 Subjective: Patient is without complaints. Ambulating, voiding after nur removed. Tolerating a regular diet without nausea or vomiting. Normal lochia. Pain is well controlled with oral pain medications. Passing flatus. Bottle-feeding. Objective: B/Ps remain elevated but stable in the 150s over 80s. Patient is asymptomatic. OK to DC per Dr. Guzman. Physical Exam: General - Alert and oriented, no apparent distress Abdomen - Soft, appropriately tender to palpation, non-distended, fundus firm at umbilicus Incision - clean, dry and intact; no erythema or induration, no drainage Extremities - no edema, negative Medina's bilaterally Assessment: Post-operative day # 7, status post PLTCS. Recovering well, hemodynamically stable Acute blood loss anemia Chronic HTN vs. Pre-eclampsia Plan: Routine post-operative care. Encourage ambulation. VTE prophylaxis: SCDs. Ferrous sulfate supplementation. Plan for discharge today. Vitals - Labs Vital Signs - I&O Vital Signs Date Time Temp Pulse Resp B/P (MAP) Pulse Ox O2 Delivery O2 Flow Rate FiO2 06/22/19 08:45 37.3 72 14 167/96 96 Room Air 06/22/19 06:33 36.0 84 18 156/92 98 Room Air 06/22/19 00:18 36.4 86 20 154/99 97 Room Air 06/21/19 18:20 167/94 Room Air 06/21/19 17:30 36.6 87 20 164/91 96 Room Air 06/21/19 13:35 36.3 98 20 147/89 98 Room Air 06/21/19 13:30 36.3 98 20 147/89 98 Room Air I & O 06/22/19 06:59 Intake Total 600 ml Balance 600 ml ALVAREZ FRYE CASING INSPECTOR Jun 22, 2019 09:44
--- NOTE | 2019-06-22 11:00 | NUR ---
PT PLANNING TO GO GET RXS LATER. WILL CALL RXS IN FOR PT. INFANT HAVING CAR SEAT TEST.
--- NOTE | 2019-06-22 13:00 | NUR ---
DR. CAMARILLO HERE TO SEE PT. PLAN FOR DISCHARGE.
--- NOTE | 2019-06-22 13:10 | Cardiology Progress Note ---
Cardiology SOAP Progress Note Subjective: no cardiac complaints. Objective: I&O/Vital Signs Weight (Pounds): 287 Weight (Ounces): 0.4 Weight (Calculated Kilograms): 130.967040 Constitutional: AAO x 3 Respiratory: chest is bilaterally symmetric, lungs clear to auscultation Cardiovascular: regular rate-rhythm, S1 and S2 Gastrointestional: soft, round, audible bowel sounds Extremities: normal range of motion, non-tender, normal inspection, no lower extremity edema bilateral Neurologic/Psychiatric: no motor/sensory deficits, alert, normal mood/affect, oriented x 3 Skin: normal color A/P: Assessment/Dx: HTN Preeclampsia DM Hypothyroidism Obesity Plan: HTN, difficult to control. Currently on Toprol XL 100mg daily, Norvasc 10mg daily, hydralazine, clonidine. Continue on current medication and continue to monitor. labor at 36 5/7 weeks,s/p on 06/15/19 Preeclampsia DM- Management by PCP Hypothyroidism-maintained on synthroid Hypomagnesemia- replaced, improved, continue to monitor. Obesity OK for discharge from cardiology standpoint. F/u with Dr. Guzman on 06/26/2019. Thank you for your consultation. Please call me if you have any questions. Kandace Scruggs MD, FACP, FACC, FSCAI, FHRS, CCDS Interventional Cardiology Cardiac Electrophysiology Vascular Medicine and Endovascular Interventions Saqib SCRUGGS MD Jun 22, 2019 13:10
[2019-06-22 13:30] VITALS: BP 132/70
--- NOTE | 2019-06-22 13:30 | NUR ---
DISCHARGE INSTRUCTIONS REVIEWED WITH COPY TO PT. STATES UNDERSTANDING OF ALL INSTRUCTIONS AND NEED TO F/U SCHEDULED AND NEEDED. PLAN TO DISCHARGE MOM SO SHE CAN GO GET HER MULTIPLE RXS WHILE INFANT HAVING CAR SEAT TEST.
[2019-06-22 14:00] VITALS: BP 132/70
--- NOTE | 2019-06-22 14:00 | NUR ---
DISMISSED AMB FROM [facility] IN STABLE CONDITION.
== END 2019-06-22 14:00 | disposition home or self-care (01) | DRG 786 ==
LOC: LDRP 14:56 → WSo 14:56 → LDRP 17:00 → UNDOADMIN 17:00 → WSo 17:00 → LDRP 06-16 00:40 → UNDODISIN 06-22 14:00 → EDSTATUS 06-23 01:06
PROVIDERS: ADMIT Obstetrics & Gynecology; ATTEND Obstetrics & Gynecology
PROC: 10D00Z1 Extraction of Products of Conception, Low, Open Approach (ICD-10-PCS; principal; 2019-06-15 21:46)
DX: O60.14X0 Preterm labor third trimester with preterm delivery third trimester, not applicable or unspecified (principal); O11.4 Pre-existing hypertension with pre-eclampsia, complicating childbirth; O24.12 Pre-existing type 2 diabetes mellitus, in childbirth; O90.81 Anemia of the puerperium; D62 Acute posthemorrhagic anemia; O10.92 Unspecified pre-existing hypertension complicating childbirth; E11.9 Type 2 diabetes mellitus without complications; O99.824 Streptococcus B carrier state complicating childbirth; O99.214 Obesity complicating childbirth; E66.9 Obesity, unspecified; O62.0 Primary inadequate contractions; O99.284 Endocrine, nutritional and metabolic diseases complicating childbirth; E03.9 Hypothyroidism, unspecified; I80.8 Phlebitis and thrombophlebitis of other sites; E83.42 Hypomagnesemia; Z79.84 Long term (current) use of oral hypoglycemic drugs; Z88.0 Allergy status to penicillin; Z3A.36 36 weeks gestation of pregnancy; Z37.0 Single live birth
CPT/HCPCS: 36415; 76805; 76819; 80053; 82947; 82962; 83033; 83615; 83735; 84443; 84550; 85025; 86762; 86850; 86900; 86901; 93005; 93306; 94664

== ENCOUNTER → 2019-06-14 | Outpatient (CLI) | payer BC ==
[~2019-06-14] MED LIST: ACET-77 PO; AMLO10TA7 PO; BLOO-729 MC; DOCU100C37 PO; HYDR-3922 PO; METF-397 PO; METO-395 PO; OXC5T PO; SERT50TA9 PO
--- NOTE | 2019-06-14 14:12 | Diagnostic Imaging Report ---
INDICATION: Gestational diabetes. TECHNIQUE: Multiple real-time grayscale images were obtained over the gravid uterus. COMPARISON: 05/16/2019. FINDINGS: There is a single live fetus in a cephalic presentation. heart rate was recorded at 134 beats per minute. The placenta is anterior. Amniotic fluid index is 19 cm. This compares with 25 cm on prior exam. Biophysical profile was also performed. Biophysical profile score is normal at 8 out of 8. Biometrical measurements are as follows: Biparietal 9.29 cm, age 37 weeks 6 days. Head circumference 33.24 cm, age 38 weeks 0 days. Abdominal circumference 32.89 cm, age 36 weeks 6 days. Femur length 7.18 cm, age 36 weeks 6 days. Sonographic estimate age: 37 weeks 3 days. Sonographic estimated date of delivery: 07/02/2019. Estimated Weight: 3098 gm (+/- 452 gm). LMP percentile: 67%. heart rate: 134 beats per minute. number: 1 of 1. IMPRESSION: 1. Single live IUP at approximately 37 weeks gestational age showing normal interval growth when compared to prior exam. Amniotic fluid index is now upper limits of normal at 19 cm compared with 25 cm on prior exam. 2. Normal biophysical profile score 8 out of 8. Dictated by: Dictated on workstation # [id number]
== END ==
LOC: RAD 11:23
PROVIDERS: ATTEND Nurse Practitioner Women's Health
DX: O24.419 Gestational diabetes mellitus in pregnancy, unspecified control (principal); Z3A.37 37 weeks gestation of pregnancy
CPT/HCPCS: 76805; 76819

== ENCOUNTER 2019-10-11 14:35 | Emergency (ER) | payer BC ==
[~2019-10-11] VITALS: Ht 167.4 cm; Wt 117.2 kg
[~2019-10-11 14:35] MED LIST changes: +CLON0.1T PO; +LISI-552 PO; +MAGN400T6 PO
[2019-10-11] MEDS ORDERED: LORazepam INJ 2 MG/ML (ATIVAN) VIAL IVP ONE (15:15)
[2019-10-11] MEDS ORDERED: NS IV 1000 ML 1,000 ML IV SCH (15:15)
--- NOTE | 2019-10-11 15:37 | ED General ---
General Chief Complaint: Dizziness/Syncope Stated Complaint: NAUSEA;LIGHT HEADED Nursing Triage Note: AMB TO ED C/O BEING DIZZY WITH VOMITING. HAS BEEN TAKNE OFF 1 OF 5 B/P MEDS. Nursing Sepsis Screen: No Definite Risk Source of Information: Patient, Family Exam Limitations: No Limitations History of Present Illness Date Seen by Provider: Oct 11, 2019 Time Seen by Provider: 15:34 Initial Comments 24-year-old white female presents with the complaint of dizziness and vomiting has been present for the last 2 days. The patient denies associated productive cough, shortness of breath, hematemesis, black or tarry stools, dysuria, frequency, flank pain, headache, photophobia or stiff neck. The patient is quite anxious and tearful. She states that she's been under significant stress recently. Allergies and Home Medications Allergies Coded Allergies: Penicillins (Verified Allergy, Mild, 06/14/19) Hot/flushed/heart racing Pork/Porcine Containing Products (Verified Allergy, Unknown, 06/14/19) Home Medications Acetaminophen 500 Mg Tablet, 1,000 MG PO Q8HR Prescribed by: YUMIKO BENITEZ on 06/19/19 09 Amlodipine Besylate 10 Mg Tablet, 10 MG PO DAILY Prescribed by: YUMIKO BENITEZ on 06/19/19 09 Clonidine HCl 0.1 Mg Tablet, 0.1 MG PO BID Prescribed by: YUMIKO BENITEZ on 06/21/19 0846 Docusate Sodium 100 Mg Capsule, 100 MG PO BID Prescribed by: YUMIKO BENITEZ on 06/19/19 09 Hydralazine HCl 10 Mg Tablet, 10 MG PO TID Prescribed by: YUMIKO BENITEZ on 06/19/19 09 Lisinopril 20 Mg Tablet, 20 MG PO DAILY Prescribed by: YUMIKO BENITEZ on 06/20/19 1434 Magnesium Oxide 400 Mg Tablet, 400 MG PO BIDPC Prescribed by: YUMIKO BENITEZ on 06/20/19 1434 Metformin HCl 500 Mg Tablet, 1,000 MG PO BID@,17 Prescribed by: YUMIKO BENITEZ on 06/19/19 09 Metoprolol Succinate 100 Mg Tab.er.24h, 100 MG PO DAILY Prescribed by: YUMIKO BENITEZ on 06/19/19 09 Oxycodone Hcl 5 Mg Tab, 5 MG PO Q4HR PRN for ABDOMINAL PAIN Prescribed by: YUMIKO BENITEZ on 06/19/19908 Sertraline HCl 50 Mg Tablet, 50 MG PO HS Prescribed by: YUMIKO BENITEZ on 06/19/19908 Patient Home Medication List Home Medication List Reviewed: Yes Review of Systems Review of Systems Constitutional: malaise, weakness EENTM: no symptoms reported Respiratory: No cough, No short of breath Cardiovascular: No chest pain Gastrointestinal: nausea, vomiting Genitourinary: No dysuria, No frequency Musculoskeletal: no symptoms reported Skin: no symptoms reported; No rash Psychiatric/Neurological: Anxiety Hematologic/Lymphatic: No Symptoms Reported Immunological/Allergic: no symptoms reported Past Cdxtsbb-Anopve-Lysuku Hx Past Med/Social Hx: Reviewed Nursing Past Med/Soc Hx Patient Social History Alcohol Use: Occasionally Uses Recreational Drug Use: No Recent Foreign Travel: No Contact w/Someone Who Travel: No Recent Infectious Disease Expo: No Recent Hopitalizations: No Seasonal Allergies Seasonal Allergies: No Past Medical History Surgeries: Yes (WISDOM TOOTH) Respiratory: No Cardiac: Yes Neurological: No Genitourinary: No Gastrointestinal: No Musculoskeletal: No Endocrine: Yes HEENT: No Cancer: No Psychosocial: No Integumentary: No Blood Disorders: No Family Medical History Diabetes mellitus 19 FATHER FH: hyperlipidemia 19 FATHER FH: hypothyroidism 19 MOTHER Hypertension 19 FATHER No Pertinent Family Hx Physical Exam Vital Signs Vital Signs - First Documented 10/11/19 14:52 Temp 36.3 Pulse 110 Resp 20 B/P (MAP) 167/120 (136) Pulse Ox 99 O2 Delivery Room Air Capillary Refill : Less Than 3 Seconds Height, Weight, BMI Height: 5'5.00" Weight: 287lbs. 0.4oz. 130.617272up; 41.00 BMI Method: General Appearance: WD/WN, Anxious Eyes: Bilateral Eye Normal Inspection HEENT: Normal ENT Inspection Neck: Normal Inspection, Non Tender, Supple Respiratory: Lungs Clear Cardiovascular: Regular Rate, Rhythm Gastrointestinal: Normal Bowel Sounds, Non Tender, Soft Back: Normal Inspection Extremity: Normal Capillary Refill, Normal Inspection, Non Tender Neurologic/Psychiatric: Alert, Oriented x3, Other (patient is quite anxious) Skin: Normal Color, Warm/Dry Progress/Results/Core Measures Suspected Sepsis Recent Fever Within 48 Hours: No Infection Criteria Present: None New/Unexplained Altered Menta: No Sepsis Screen: No Definite Risk SIRS Temperature: Pulse: 110 Respiratory Rate: 20 Laboratory Tests 10/11/19 15:05: White Blood Count 10.7 Blood Pressure 167 /120 Mean: 136 Laboratory Tests 10/11/19 15:05: Creatinine 1.11, Platelet Count 388, Total Bilirubin 0.2 Results/Orders Lab Results Laboratory Tests Test 10/11/19 15:05 Range/Units White Blood Count 10.7 4.3-11.0 10^3/uL Red Blood Count 4.73 4.35-5.85 10^6/uL Hemoglobin 12.8 11.5-16.0 G/DL Hematocrit 38 35-52 % Mean Corpuscular Volume 81 80-99 FL Mean Corpuscular Hemoglobin 27 25-34 PG Mean Corpuscular Hemoglobin Concent 34 32-36 G/DL Red Cell Distribution Width 13.6 10.0-14.5 % Platelet Count 388 130-400 10^3/uL Mean Platelet Volume 10.6 H 7.4-10.4 FL Neutrophils (%) (Auto) 67 42-75 % Lymphocytes (%) (Auto) 24 12-44 % Monocytes (%) (Auto) 7 0-12 % Eosinophils (%) (Auto) 2 0-10 % Basophils (%) (Auto) 0 0-10 % Neutrophils # (Auto) 7.2 1.8-7.8 X 10^3 Lymphocytes # (Auto) 2.6 1.0-4.0 X 10^3 Monocytes # (Auto) 0.7 0.0-1.0 X 10^3 Eosinophils # (Auto) 0.2 0.0-0.3 10^3/uL Basophils # (Auto) 0.0 0.0-0.1 10^3/uL Sodium Level 136 135-145 MMOL/L Potassium Level 4.0 3.6-5.0 MMOL/L Chloride Level 102 98-107 MMOL/L Carbon Dioxide Level 18 L 21-32 MMOL/L Anion Gap 16 H 5-14 MMOL/L Blood Urea Nitrogen 15 7-18 MG/DL Creatinine 1.11 0.60-1.30 MG/DL Estimat Glomerular Filtration Rate 60 BUN/Creatinine Ratio 14 Glucose Level 116 H 70-105 MG/DL Calcium Level 9.8 8.5-10.1 MG/DL Corrected Calcium 9.5 8.5-10.1 MG/DL Total Bilirubin 0.2 0.1-1.0 MG/DL Aspartate Amino Transf (AST/SGOT) 19 5-34 U/L Alanine Aminotransferase (ALT/SGPT) 18 0-55 U/L Alkaline Phosphatase 72 40-136 U/L Total Protein 7.8 6.4-8.2 GM/DL Albumin 4.4 3.2-4.5 GM/DL My Orders Orders - MIKE FRIEDMAN MD Cbc With Automated Diff (10/11/19 15:12) Comprehensive Metabolic Panel (10/11/19 15:12) Lorazepam Injection (Ativan Injection) (10/11/19 15:15) Ns Iv 1000 Ml (Sodium Chloride 0.9%) (10/11/19 15:15) Ondansetron Injection (Zofran Injectio (10/11/19 15:45) Medications Given in ED Current Medications Medications Dose Ordered Sig/Marline Route Start Time Stop Time Status Last Admin Dose Admin Lorazepam 1 mg ONCE ONCE IVP 10/11/19 15:15 10/11/19 15:16 DC 10/11/19 15:19 1 MG Ondansetron HCl 4 mg ONCE ONCE IVP 10/11/19 15:45 10/11/19 15:46 DC 10/11/19 15:45 4 MG Vital Signs/I&O 10/11/19 14:52 Temp 36.3 Pulse 110 Resp 20 B/P (MAP) 167/120 (136) Pulse Ox 99 O2 Delivery Room Air Capillary Refill : Less Than 3 Seconds Blood Pressure Mean: 136 Progress Note : Time: 16:36 Progress Note The patient's nausea abated after IV Zofran. Her anxiety was relieved with Ativan. The patient's laboratory evaluation was unremarkable. The patient was symptomatically improved at time of discharge. She was asked to rest at home tomorrow. He was given a note for work tomorrow. She was asked to Zofran and Ultram for nausea and pain. She was invited to return if she any further problems or questions. Departure Impression Primary Impression: Viral syndrome Disposition: 01 HOME, SELF-CARE Condition: Improved Departure-Patient Inst. Decision time for Depature: 16:37 Referrals: ALVAREZ FRYE APRN (PCP/Family) Primary Care Physician Patient Instructions: VIRAL SYNDROME Add. Discharge Instructions: Zofran for nausea and Ultram for pain. Rest at home tomorrow. Return if any problems or questions. All discharge instructions reviewed with patient and/or family. Voiced understanding. Scripts Tramadol HCl (Ultram) 50 Mg Tablet 50 MG PO q6 for Pain, #14 TAB Prov: MIKE FRIEDMAN MD 10/11/19 Ondansetron (Ondansetron Odt) 4 Mg Tab.rapdis 4 MG PO Q4H PRN for NAUSEA/VOMITING, #14 TAB Prov: MIKE FRIEDMAN MD 10/11/19 MIKE FRIEDMAN MD Oct 11, 2019 15:37
[2019-10-11] MEDS ORDERED: ONDANSETRON 4 MG/2 ML (SDV) Z0FRAN IVP ONE (15:45)
[2019-10-11 15:55] LABS: BASOPHILS % (AUTO) 0 % (0-10); EOSINOPHILS # (AUTO) 0.2 10^3/uL (0.0-0.3); EOSINOPHILS % (AUTO) 2 % (0-10); HEMATOCRIT 38 % (35-52); HEMOGLOBIN 12.8 G/DL (11.5-16.0); LYMPHOCYTES # (AUTO) 2.6 X 10^3 (1.0-4.0); LYMPHOCYTES % (AUTO) 24 % (12-44); MEAN CORPUSCULAR HEMOGLOBIN 27 PG (25-34); MEAN CORPUSCULAR HGB CONC 34 G/DL (32-36); MEAN CORPUSCULAR VOLUME 81 FL (80-99); MEAN PLATELET VOLUME 10.6 FL (7.4-10.4); MONOCYTES # (AUTO) 0.7 X 10^3 (0.0-1.0); MONOCYTES % (AUTO) 7 % (0-12); NEUTROPHILS # (AUTO) 7.2 X 10^3 (1.8-7.8); NEUTROPHILS % (AUTO) 67 % (42-75); PLATELET COUNT 388 10^3/uL (130-400); RED CELL DISTRIBUTION WIDTH 13.6 % (10.0-14.5); WHITE BLOOD COUNT 10.7 10^3/uL (4.3-11.0)
[2019-10-11 16:06] LABS: ALBUMIN 4.4 GM/DL (3.2-4.5); BILIRUBIN,TOTAL 0.2 MG/DL (0.1-1.0); CALCIUM 9.8 MG/DL (8.5-10.1); CREATININE SERUM 1.11 MG/DL (0.60-1.30); TOTAL PROTEIN 7.8 GM/DL (6.4-8.2)
[2019-10-11] MEDS ORDERED: ONDA4TAB11 PO (16:41)
[2019-10-11] MEDS ORDERED: TRAM-42 PO (16:41)
[2019-10-11 16:59] VITALS: BP 135/88
[2019-10-12] MEDS ORDERED: METH4TAB PO (20:22)
== END 2019-10-11 16:59 | disposition home or self-care (01) ==
LOC: EDUNIT# 14:35 → ER 14:36
DX: B34.9 Viral infection, unspecified (principal); Z88.0 Allergy status to penicillin; Z79.84 Long term (current) use of oral hypoglycemic drugs; Z82.49 Family history of ischemic heart disease and other diseases of the circulatory system
CPT/HCPCS: 36415; 80053; 85025; 96361; 96374; 96375

== ENCOUNTER 2019-10-12 17:37 | Emergency (ER) | payer BC ==
[~2019-10-12] VITALS: Ht 167 cm; Wt 114.0 kg
[~2019-10-12 17:37] MED LIST changes: +ONDA4TAB11 PO; +TRAM-42 PO
--- NOTE | 2019-10-12 18:16 | ED General ---
General Chief Complaint: Neurological Problems Stated Complaint: R SIDE FACIAL NUMBNESS/HEADACHE/NAUSEA Nursing Triage Note: STATES SHE WAS SEEN BY CLINIC TODAY AND WAS SENT HERE FOR STROKE LIKE SYMPTOMS. STATES SHE SHE HAS BEEN SLURRING WORDS, DROOLING, AND WEAKNESS ON THE RIGHT SIDE OF HER FACE. LAST WELL KNOWN TIME WAS 10/10/19 2230 STATES SHE FEELS LIKE HER HEART IS RACING. PT WAS SEEN IN THIS ER YESTERDAY. Nursing Sepsis Screen: No Definite Risk Source of Information: Patient History of Present Illness Date Seen by Provider: Oct 12, 2019 Time Seen by Provider: 18:00 Initial Comments PT ARRIVES VIA POV FROM HOME WITH MOM AND GRANDMOTHER PT WITH MULTITUDE OF COMPLAINTS: SINCE WAKING YESTERDAY MORNING, LKWT 10/10/19 AT 2230. STATES SHE HAS BEEN HAVING SLURRING OF HER WORDS AND DROOLING STATES SHE FELL ASLEEP AT WORK YESTERDAY, AND WAS SENT HOME, BECAUSE SHE WAS SLURRING HER WORDS AND DROOLING--PLANT OPERATIONS COORDINATOR JOB. STATES RIGHT SIDE OF HER FACE OCCASIONALLY FEELS NUMB AND TINGLY. C/O HEADACHE TO BACK OF HEAD--HAS "CHRONIC MIGRAINES" C/O NAUSEA, VOMITING X 1 YESTERDAY, NO VOMITING TODAY HAS CHRONIC DIARRHEA FROM METFORMIN, AND IS NO DIFFERENT THAN NORMAL NO ABDOMINAL PAIN NO URINARY SYMPTOMS NO DIZZINESS NO VISION CHANGES NO PROBLEMS WALKING NO PROBLEMS EATING OR DRINKING--NO SWALLOWING DIFFICULTY--HAS BEEN EATING TOAST AND APPLESAUCE, AND HAS BEEN DRINKING GATORADE AND WATER--HAS HAD AT LEAST 3-4 LARGE BOTTLES OF GATORADE TODAY, PLUS WATER NO FEVER, URI / SINUS SYMPTOMS. NO COUGH/CONGESTION/SORE THROAT. NO NECK PAIN OR STIFFNESS NO CHEST PAIN OR SHORTNESS OF BREATH STATES SOMETIMES IT FEELS LIKE HER HEART IS RACING, BUT NOT NOW. ALSO C/O LOWER BACK PAIN, IN THE AREA WHERE SHE HAD EPIDURAL WITH DELIVERY IN STATES PAIN IN THIS AREA HAS BEEN WORSE FOR THE LAST FEW WEEKS, BUT IS NO DIFFERENT TODAY LMP 09/09/19. NORMAL. ON OCP'S. DENIES MISSED DOSES OF MEDICATIONS WAS SEEN HERE YESTERDAY FOR SAME COMPLAINTS. GIVEN RX FOR TRAMADOL. TOOK 1 THIS AM. SYMPTOMS CONTINUE TODAY, AND ARE NO DIFFERENT THAN THEY WERE YESTERDAY HER CHILD HAD VACCINATIONS TODAY AT [facility], SO PT WENT TO WALK IN CLINIC THERE TODAY FOR THESE SYMPTOMS, AND WAS TOLD TO COME HERE FOR FURTHER EVALUATION. PT HAS HISTORY OF HTN, AND HAD PRE-ECLAMPSIA WITH HER , AND HAS BEEN FOLLOWED BY DR. OSWALD FOR FURTHER TREATMENT OF HTN. HE DC'D HER HYDRALAZINE 09/09/19 BECAUSE HER BP WAS DOING BETTER. . PT STILL TAKES AMLODIPINE, METOPROLOL, CLONIDINE AND LISINOPRIL FOR HTN. PT ALSO TAKES METFORMIN SINCE AGE 16/17 FOR "PREDIABETES" DENIES ANY NEW MEDICATIONS PRIOR TO ONSET OF SYMPTOMS. DENIES HISTORY OF SIMILAR PT HAS BEEN UNDER SEVERE STRESS SINCE DELIVERY OF HER CHILD IN JUN. MOM HAS ARRIVED LAST NIGHT/TODAY, STATES SHE LIVES 400 MILES AWAY, AND SHE STATES THAT YESTERDAY, SOME OF THE PT'S TEXT MESSAGES "DIDN'T MAKE SENSE" PCP: DR. MANUEL TAX PROCESSOR: DR. OSWALD JUNIOR BUSINESS ANALYST: DR. BENITEZ Allergies and Home Medications Allergies Coded Allergies: Penicillins (Verified Allergy, Mild, 06/14/19) Hot/flushed/heart racing Pork/Porcine Containing Products (Verified Allergy, Unknown, 06/14/19) Home Medications Acetaminophen 500 Mg Tablet, 1,000 MG PO Q8HR Prescribed by: YUMIKO BENITEZ on 06/19/19 09 Amlodipine Besylate 10 Mg Tablet, 10 MG PO DAILY Prescribed by: YUMIKO BENITEZ on 06/19/19 09 Clonidine HCl 0.1 Mg Tablet, 0.1 MG PO BID Prescribed by: YUMIKO BENITEZ on 06/21/19 0846 Docusate Sodium 100 Mg Capsule, 100 MG PO BID Prescribed by: YUMIKO BENITEZ on 06/19/19 09 Hydralazine HCl 10 Mg Tablet, 10 MG PO TID Prescribed by: YUMIKO BENITEZ on 06/19/19 09 Lisinopril 20 Mg Tablet, 20 MG PO DAILY Prescribed by: YUMIKO BENITEZ on 06/20/19 1434 Magnesium Oxide 400 Mg Tablet, 400 MG PO BIDPC Prescribed by: YUMIKO BENITEZ on 06/20/19 1434 Metformin HCl 500 Mg Tablet, 1,000 MG PO BID@ Prescribed by: YUMIKO BENITEZ on 06/19/19 09 Methylprednisolone 4 Mg Tab.ds.pk, 4 MG PO UD Prescribed by: SANTANA RANDALL on 10/12/192021 Metoprolol Succinate 100 Mg Tab.er.24h, 100 MG PO DAILY Prescribed by: YUMIKO BENITEZ on 06/19/19908 Ondansetron 4 Mg Tab.rapdis, 4 MG PO Q4H PRN for NAUSEA/VOMITING Prescribed by: MIKE FRIEDMAN MD on 10/11/191640 Oxycodone Hcl 5 Mg Tab, 5 MG PO Q4HR PRN for ABDOMINAL PAIN Prescribed by: YUMIKO BENITEZ on 06/19/19908 Sertraline HCl 50 Mg Tablet, 50 MG PO HS Prescribed by: YUMIKO BENITEZ on 06/19/19908 Tramadol HCl 50 Mg Tablet, 50 MG PO q6 Prescribed by: MIKE FRIEDMAN MD on 10/11/191640 Patient Home Medication List Home Medication List Reviewed: Yes Review of Systems Review of Systems Constitutional: no symptoms reported EENTM: see HPI; No hearing loss, No ear pain, No blurred vision, No double vision, No tearing, No hoarseness, No mouth pain, No mouth swelling, No nose congestion, No throat pain, No throat swelling Respiratory: no symptoms reported; No cough, No dyspnea on exertion, No orthopnea, No short of breath, No wheezing Cardiovascular: see HPI; No chest pain, No edema; palpitations; No syncope, No vascular heart diseas Gastrointestinal: see HPI; No abdominal pain, No constipation; diarrhea; No dysphagia; nausea, vomiting : No LMP: Sep 09, 2019 Musculoskeletal: see HPI, back pain; No neck pain Skin: no symptoms reported Psychiatric/Neurological: See HPI, Anxiety, Headache, Paresthesia; Denies Seizure, Denies Weakness Hematologic/Lymphatic: No Symptoms Reported Immunological/Allergic: no symptoms reported Past Mivdbdd-Odfagm-Wrpjfj Hx Patient Social History Alcohol Use: Denies Use Recreational Drug Use: No Smoking Status: Never a Smoker Recent Foreign Travel: No Contact w/Someone Who Travel: No Recent Infectious Disease Expo: No Recent Hopitalizations: No Seasonal Allergies Seasonal Allergies: No Past Medical History Surgeries: Yes (WISDOM TOOTH) Respiratory: No Cardiac: Yes Hypertension Neurological: Yes Headaches /Migraines : No Reproductive Disorders: No Female Reproductive Disorders: Denies Genitourinary: No Gastrointestinal: No Musculoskeletal: No Endocrine: Yes (OBESITY; ) Diabetes, Non-Insulin dep HEENT: No Cancer: No Psychosocial: Yes Anxiety, Depression Integumentary: No Blood Disorders: No Family Medical History Diabetes mellitus 19 FATHER FH: hyperlipidemia 19 FATHER FH: hypothyroidism 19 MOTHER Hypertension 19 FATHER No Pertinent Family Hx Physical Exam Vital Signs Vital Signs - First Documented 10/12/19 17:44 Temp 36.7 Pulse 86 Resp 16 B/P (MAP) 150/93 (112) Pulse Ox 99 O2 Delivery Room Air Capillary Refill : Less Than 3 Seconds Height, Weight, BMI Height: 5'5.00" Weight: 287lbs. 0.4oz. 130.121471du; 40.00 BMI Method: General Appearance: No Apparent Distress, Obese HEENT: PERRL/EOMI, Normal ENT Inspection, Pharynx Normal Neck: Full Range of Motion, Normal Inspection, Non Tender, Supple Respiratory: Normal Breath Sounds, No Accessory Muscle Use, No Respiratory Distress Cardiovascular: Regular Rate, Rhythm, No Edema, No JVD, No Murmur, Normal Peripheral Pulses Gastrointestinal: Non Tender, Soft Back: No CVA Tenderness Extremity: Normal Capillary Refill, Normal Inspection, Normal Range of Motion, Non Tender, No Calf Tenderness, No Pedal Edema Neurologic/Psychiatric: Alert, Oriented x3, No Motor/Sensory Deficits, Normal Mood/Affect, recovery specialist II-XII Norm as Tested; No Abnormal Gait, No Facial Droop; Other (SPEECH APPEARS SLIGHTLY THICK TONGUED AT TIMES, BUT THIS APPEARS TO STOP WHEN DISTRACTED. PT TALKS AT GREAT LENGTH. SOMEWHAT ANXIOUS. ) Skin: Normal Color, Warm/Dry Progress/Results/Core Measures Suspected Sepsis Recent Fever Within 48 Hours: No Infection Criteria Present: None New/Unexplained Altered Menta: No Sepsis Screen: No Definite Risk SIRS Temperature: Pulse: 86 Respiratory Rate: 16 Laboratory Tests 10/12/19 18:10: White Blood Count 9.4 Blood Pressure 150 /93 Mean: 112 Laboratory Tests 10/12/19 18:10: Creatinine 0.85, INR Comment 1.0, Platelet Count 354, Total Bilirubin 0.2 Results/Orders Lab Results Laboratory Tests Test 10/12/19 18:10 10/12/19 18:25 Range/Units White Blood Count 9.4 4.3-11.0 10^3/uL Red Blood Count 4.39 4.35-5.85 10^6/uL Hemoglobin 11.9 11.5-16.0 G/DL Hematocrit 35 35-52 % Mean Corpuscular Volume 80 80-99 FL Mean Corpuscular Hemoglobin 27 25-34 PG Mean Corpuscular Hemoglobin Concent 34 32-36 G/DL Red Cell Distribution Width 13.5 10.0-14.5 % Platelet Count 354 130-400 10^3/uL Mean Platelet Volume 10.0 7.4-10.4 FL Neutrophils (%) (Auto) 63 42-75 % Lymphocytes (%) (Auto) 29 12-44 % Monocytes (%) (Auto) 7 0-12 % Eosinophils (%) (Auto) 1 0-10 % Basophils (%) (Auto) 0 0-10 % Neutrophils # (Auto) 5.9 1.8-7.8 X 10^3 Lymphocytes # (Auto) 2.7 1.0-4.0 X 10^3 Monocytes # (Auto) 0.7 0.0-1.0 X 10^3 Eosinophils # (Auto) 0.1 0.0-0.3 10^3/uL Basophils # (Auto) 0.0 0.0-0.1 10^3/uL Prothrombin Time 13.8 12.2-14.7 SEC INR Comment 1.0 0.8-1.4 Activated Partial Thromboplast Time 30 24-35 SEC Sodium Level 135 135-145 MMOL/L Potassium Level 4.2 3.6-5.0 MMOL/L Chloride Level 102 98-107 MMOL/L Carbon Dioxide Level 19 L 21-32 MMOL/L Anion Gap 14 5-14 MMOL/L Blood Urea Nitrogen 9 7-18 MG/DL Creatinine 0.85 0.60-1.30 MG/DL Estimat Glomerular Filtration Rate > 60 BUN/Creatinine Ratio 11 Glucose Level 101 70-105 MG/DL Calcium Level 9.7 8.5-10.1 MG/DL Corrected Calcium 9.6 8.5-10.1 MG/DL Magnesium Level 1.6 1.6-2.4 MG/DL Total Bilirubin 0.2 0.1-1.0 MG/DL Aspartate Amino Transf (AST/SGOT) 29 5-34 U/L Alanine Aminotransferase (ALT/SGPT) 22 0-55 U/L Alkaline Phosphatase 60 40-136 U/L Myoglobin 28.3 10.0-92.0 NG/ML Total Protein 7.5 6.4-8.2 GM/DL Albumin 4.1 3.2-4.5 GM/DL TSH [place] Testing 3.80 0.35-4.94 UIU/ML Salicylates Level < 5.0 L 5.0-20.0 MG/DL Acetaminophen Level < 10 L 10-30 UG/ML Serum Alcohol < 10 <10 MG/DL Monoscreen NEGATIVE NEGATIVE Urine Color YELLOW Urine Clarity CLEAR Urine pH 5.5 5-9 Urine Specific [place] 1.025 H 1.016-1.022 Urine Protein TRACE NEGATIVE Urine Glucose (UA) NEGATIVE NEGATIVE Urine Ketones NEGATIVE NEGATIVE Urine Nitrite NEGATIVE NEGATIVE Urine Bilirubin NEGATIVE NEGATIVE Urine Urobilinogen 0.2 < = 1.0 MG/DL Urine Leukocyte Esterase NEGATIVE NEGATIVE Urine RBC (Auto) NEGATIVE NEGATIVE Urine RBC NONE /HPF Urine WBC 5-10 H /HPF Urine Squamous Epithelial Cells 10-25 H /HPF Urine Crystals NONE /LPF Urine Bacteria TRACE /HPF Urine Casts NONE /LPF Urine Mucus NEGATIVE /LPF Urine Culture Indicated YES Urine Opiates Screen NEGATIVE NEGATIVE Urine Oxycodone Screen NEGATIVE NEGATIVE Urine Methadone Screen NEGATIVE NEGATIVE Urine Propoxyphene Screen NEGATIVE NEGATIVE Urine Barbiturates Screen NEGATIVE NEGATIVE Ur Tricyclic Antidepressants Screen NEGATIVE NEGATIVE Urine Phencyclidine Screen NEGATIVE NEGATIVE Urine Amphetamines Screen NEGATIVE NEGATIVE Urine Methamphetamines Screen NEGATIVE NEGATIVE Urine Benzodiazepines Screen POSITIVE H NEGATIVE Urine Cocaine Screen NEGATIVE NEGATIVE Urine Cannabinoids Screen NEGATIVE NEGATIVE My Orders Orders - SANTANA RANDALL DO Ed Iv/Invasive Line Start (10/12/19 18:00) Urine Bedside (10/12/19 18:00) Monitor-Rhythm Ecg Trace Only (10/12/19 18:00) Ct Head Wo-R/O Stroke (10/12/19 18:00) Acetaminophen (10/12/19 18:00) Alcohol (10/12/19 18:00) Cbc With Automated Diff (10/12/19 18:00) Comprehensive Metabolic Panel (10/12/19 18:00) Drug Screen Stat (Urine) (10/12/19 18:00) Monotest (10/12/19 18:00) Protime With Inr (10/12/19 18:00) Partial Thromboplastin Time (10/12/19 18:00) Thyroid Analyzer (10/12/19 18:00) Ua Culture If Indicated (10/12/19 18:00) Myoglobin Serum (10/12/19 18:00) Magnesium (10/12/19 18:00) Salicylate (10/12/19 18:00) Accucheck Stat ONCE (10/12/19 18:02) Ekg Tracing (10/12/19 18:02) Chest Pa/Lat (2 View) (10/12/19 18:17) Ct Angio Head/Neck (10/12/19 18:53) Urine Culture (10/12/19 18:25) Iohexol Injection (Omnipaque 350 Mg/Ml 1 (10/12/19 19:15) Received Contrast (Hold Metformin- Contr (10/12/19 19:15) Ns (Ivpb) (Sodium Chloride 0.9% Ivpb Bag (10/12/19 19:15) Sodium Chloride Flush (Catheter Flush Sy (10/12/19 19:15) Methylprednisolone Sod Succ (Solu-Medrol (10/12/19 20:30) Medications Given in ED Current Medications Medications Dose Ordered Sig/Marline Route Start Time Stop Time Status Last Admin Dose Admin Iohexol 100 ml ONCE ONCE IV 10/12/19 19:15 10/12/19 19:29 DC 10/12/19 19:22 75 ML Methylprednisolone Sodium Succinate 125 mg ONCE ONCE IVP 10/12/19 20:30 10/12/19 20:31 DC 10/12/19 20:40 125 MG Sodium Chloride 10 ml NEEDED PRN IV 10/12/19 19:15 10/12/19 19:22 10 ML Sodium Chloride 100 ml ONCE ONCE IV 10/12/19 19:15 10/12/19 19:29 DC 10/12/19 19:22 80 ML Vital Signs/I&O 10/12/19 17:44 Temp 36.7 Pulse 86 Resp 16 B/P (MAP) 150/93 (112) Pulse Ox 99 O2 Delivery Room Air Capillary Refill : Less Than 3 Seconds Blood Pressure Mean: 112 Progress Note : Progress Note UNEVENTFUL ER STAY. VITALS STABLE. NO DETERIORATION IN PT'S CONDITION DURING ER STAY WILL ORDER AN OUTPATIENT MRI OF BRAIN AND HAVE PT FOLLOW UP WITH DR. MANUEL NEXT WEEK SYMPTOMS ONGOING FOR > 48 HOURS AND HAVE NOT WORSENED, NOT A CANDIDATE FOR ANY EMERGENT TREATMENT /TESTING AT THIS TIME. ECG Initial ECG Impression Date: Oct 12, 2019 Initial ECG Impression Time: 18:22 Initial ECG Rate: 80 Initial ECG Rhythm: Normal Sinus Diagnostic Imaging Comments CXR--NO ACUTE PROCESS, PER RADIOLOGIST REPORT CT HEAD--NON-SPECIFIC, VAGUE AREA OF HYPOATTENUATION IN RIGHT FRONTAL LOBE, PER RADIOLOGIST VIA PHONE AAT 1846 CT ANGIOGRAM HEAD/NECK--DEEP RIGHT FRONTAL LOBE WITH SMALL AREA OF NON-SPECIFIC LOW ATTENUATION--PER RADIOLOGIST REPORT AT 2012 Reviewed: Reviewed by Me Departure Impression Primary Impression: Altered mental status Additional Impressions: Abnormal finding on CT scan HTN (hypertension) NIDDM Anxiety Headache Disposition: HOME, SELF-CARE Condition: Stable Departure-Patient Inst. Referrals: DALLIN MANUEL DO (PCP/Family) Primary Care Physician Patient Instructions: Altered Mental Status (DC), CT Scan, Head, High Blood Pressure in Adults, High Blood Pressure (DC), Altered Mental Status, Low Salt Diet, Anxiety, Adult (DC) Add. Discharge Instructions: STOP TRAMADOL LOTS OF CLEAR LIQUIDS TYLENOL AND MOTRIN NEEDED FOR PAIN CONTINUE YOUR REGULAR MEDICATIONS PRESCRIBED, AND YOU MAY TAKE YOUR HYDRALAZINE NEEDED FOR ELEVATED BLOOD PRESSURE CALL TO SCHEDULE OUTPATIENT MRI FOLLOW UP WITH DR. MANUEL NEXT WEEK FOR FURTHER CARE, RETURN TO ER IF WORSE All discharge instructions reviewed with patient and/or family. Voiced understanding. Scripts Methylprednisolone (Medrol) 4 Mg Tab.ds.pk 4 MG PO UD, #1 PKG Prov: SANTANA RANDALL DO 10/12/19 SANTANA RANDALL DO Oct 12, 2019 18:16
[2019-10-12 18:22] LABS: BASOPHILS % (AUTO) 0 % (0-10); EOSINOPHILS # (AUTO) 0.1 10^3/uL (0.0-0.3); EOSINOPHILS % (AUTO) 1 % (0-10); HEMATOCRIT 35 % (35-52); HEMOGLOBIN 11.9 G/DL (11.5-16.0); LYMPHOCYTES # (AUTO) 2.7 X 10^3 (1.0-4.0); LYMPHOCYTES % (AUTO) 29 % (12-44); MEAN CORPUSCULAR HEMOGLOBIN 27 PG (25-34); MEAN CORPUSCULAR HGB CONC 34 G/DL (32-36); MEAN CORPUSCULAR VOLUME 80 FL (80-99); MONOCYTES # (AUTO) 0.7 X 10^3 (0.0-1.0); MONOCYTES % (AUTO) 7 % (0-12); NEUTROPHILS # (AUTO) 5.9 X 10^3 (1.8-7.8); NEUTROPHILS % (AUTO) 63 % (42-75); PLATELET COUNT 354 10^3/uL (130-400); RED CELL DISTRIBUTION WIDTH 13.5 % (10.0-14.5); WHITE BLOOD COUNT 9.4 10^3/uL (4.3-11.0)
[2019-10-12 18:33] LABS: PROTHROMBIN TIME PATIENT 13.8 SEC (12.2-14.7)
[2019-10-12 18:38] LABS: BILIRUBIN,URINE NEGATIVE (NEGATIVE); CLARITY,URINE CLEAR; COLOR,URINE YELLOW; GLUCOSE, URINE (UA) NEGATIVE (NEGATIVE); KETONES,URINE NEGATIVE (NEGATIVE); LEUKOCYTE ESTERASE ,URINE NEGATIVE (NEGATIVE); NITRITE,URINE NEGATIVE (NEGATIVE); PH,URINE 5.5 (5-9); PROTEIN,URINE TRACE (NEGATIVE)
[2019-10-12 18:39] LABS: ALANINE AMINOTRANSFERASE 22 U/L (0-55); ALBUMIN 4.1 GM/DL (3.2-4.5); ALKALINE PHOSPHATASE 60 U/L (40-136); BILIRUBIN,TOTAL 0.2 MG/DL (0.1-1.0); BUN/CREATININE RATIO 11; CALCIUM 9.7 MG/DL (8.5-10.1); CARBON DIOXIDE 19 MMOL/L (21-32); CHLORIDE 102 MMOL/L (98-107); CREATININE SERUM 0.85 MG/DL (0.60-1.30); GFR ESTIMATED > 60; GLUCOSE 101 MG/DL (70-105); MAGNESIUM 1.6 MG/DL (1.6-2.4); POTASSIUM 4.2 MMOL/L (3.6-5.0); SALICYLATE < 5.0 MG/DL (5.0-20.0); SODIUM 135 MMOL/L (135-145); TOTAL PROTEIN 7.5 GM/DL (6.4-8.2)
--- NOTE | 2019-10-12 18:53 | Diagnostic Imaging Report ---
PROCEDURE: CT head wo r/o stroke. TECHNIQUE: Multiple contiguous axial images were obtained through the brain without the use of intravenous contrast. Auto Exposure Controls were utilized during the CT exam to meet ALARA standards for radiation dose reduction. INDICATION: Stroke-like symptoms, slurring of words, drooling, and weakness on right side of face. CORRELATION STUDY: None. FINDINGS: Ventricles and sulci are age appropriate. There is question of a very subtle area of slight asymmetric low attenuation in the deep right frontal lobe white matter. There is no suggestion for intracranial hemorrhage. No midline shift or mass effect. Basal cisterns are maintained. No hyperdense MCA sign. Bony calvarium intact. Paranasal sinus and mastoid air cells are clear. IMPRESSION: 1. Questioned asymmetric low attenuation in deep right frontal lobe white matter. This finding is nonspecific. Possibility of mild edema or other process such as potentially a demyelinating lesion could account for this. Consideration for follow-up MRI would be recommended depending on clinical findings. Telephone call has been made to the emergency department, 06:47 p.m. Dictated by: Dictated on workstation # [id number]
[2019-10-12 18:59] LABS: BACTERIA,URINE TRACE /HPF
--- NOTE | 2019-10-12 18:59 | Diagnostic Imaging Report ---
INDICATION: Stroke like symptoms, slurring words, drooling and weakness.. TECHNIQUE: Two view chest 6:44 PM CORRELATION STUDY: None FINDINGS: There is limited depth of inspiration. Given this, heart size is likely within normal limits. Vasculature within normal limits. The lungs are clear with no consolidating infiltrate. There is no significant pleural effusion or pneumothorax. Visualized osseous structures are unremarkable. IMPRESSION: 1. Negative for acute abnormality of the chest. Dictated by: Dictated on workstation # [id number]
[2019-10-12 19:00] LABS: AMPHETAMINE SCREEN, URINE NEGATIVE (NEGATIVE); BARBITURATE SCREEN URINE NEGATIVE (NEGATIVE); BENZODIAZEPINES SCREEN URINE POSITIVE (NEGATIVE); CANNABINOID SCREEN, URINE NEGATIVE (NEGATIVE); COCAINE SCREEN URINE NEGATIVE (NEGATIVE); METHADONE STAT NEGATIVE (NEGATIVE); METHAMPHETAMINE SCREEN URINE S NEGATIVE (NEGATIVE); OPIATE SCREEN URINE NEGATIVE (NEGATIVE); OXYCODONE STAT NEGATIVE (NEGATIVE); PROPOXYPHENE STAT NEGATIVE (NEGATIVE); TRICYCLIC ANTIDEPRESSANTS SCRE NEGATIVE (NEGATIVE)
[2019-10-12 19:07] LABS: ACETAMINOPHEN < 10 UG/ML (10-30)
[2019-10-12] MEDS ORDERED: CATHETER FLUSH 10 ML SYR IV PRN (19:15)
[2019-10-12] MEDS ORDERED: HOLD METFORMIN - RECEIVED CONTRAST 20 ML VIAL IV SCH (19:15)
[2019-10-12] MEDS ORDERED: NS 100 ML (IVPB) BAG IV ONE (19:15)
[2019-10-12] MEDS ORDERED: IOHEXOL 350 MG/ML 100 ML (OMNIPAQUE 350) VIAL IV ONE (19:15)
--- NOTE | 2019-10-12 19:59 | Diagnostic Imaging Report ---
PROCEDURE: CT angiography of the head and CT angiography of the neck with and without contrast. TECHNIQUE: Contiguous noncontrast images were obtained from the skull base through the vertex. After intravenous contrast administration, helical CT angiography of the neck was performed. Source data was reformatted into 3D MIP projections. Delayed post contrast acquisition was also obtained. Auto Exposure Controls were utilized during the CT exam to meet ALARA standards for radiation dose reduction. INDICATION: Stroke like symptoms, slurring words, drooling, weakness on right side of face. Symptoms for a few days. CORRELATION STUDY: None FINDINGS: There is note made of attenuation at the base of the neck and upper chest. There is a normal three-vessel branching pattern at the level of the aortic arch. The common carotid arteries, carotid bifurcations as well as internal and external carotid arteries are patent. There is note of rather marked redundancy with looping at the distal left internal carotid artery below the skull base. Posterior circulation demonstrates perhaps very slightly more dominant right vertebral artery. Vertebral arteries appear to be patent to the level of the skull base. Intracranially, intracranial ICAs are patent. The middle and anterior cerebral arteries are patent. Anterior communicating artery is visualized and patent. Posterior circulation demonstrates unremarkable basilar artery. Posterior cerebral arteries are patent. No definitive large vessel occlusion or significant vascular malformation. The dural venous system patent. Postcontrast imaging of the head again demonstrates asymmetric low attenuating region within the right basal ganglia and the posterior deep right frontal lobe white matter. Visualized lung apices are unremarkable. IMPRESSION: 1. Unremarkable appearing CTA neck. 2. Unremarkable appearing CTA [place] of [place]. 3. Postcontrast imaging of the head again demonstrates low attenuating area within the deep right frontal lobe white matter and basal ganglia. This finding is nonspecific and could be reflective of edema including ischemia. The possibility of other processes such as demyelinating plaque could also account for this. Correlation with the MRI of the brain is recommended for follow-up. Dictated by: Dictated on workstation # [id number]
[2019-10-12] MEDS ORDERED: METH4TAB PO (20:22)
[2019-10-12] MEDS ORDERED: methylPREDNISolone 125 MG (Solu-MEDROL) VIAL IVP ONE (20:30)
[2019-10-12 20:38] VITALS: BP 133/92
== END 2019-10-12 20:53 | disposition home or self-care (01) ==
LOC: EDUNIT# 17:37 → ER 17:38
DX: R41.82 Altered mental status, unspecified (principal); I10 Essential (primary) hypertension; E11.9 Type 2 diabetes mellitus without complications; F41.9 Anxiety disorder, unspecified; R51 Headache; R93.89 Abnormal findings on diagnostic imaging of other specified body structures; E66.9 Obesity, unspecified; F32.9 Major depressive disorder, single episode, unspecified; Z68.41 Body mass index [BMI] 40.0-44.9, adult; Z82.49 Family history of ischemic heart disease and other diseases of the circulatory system; Z86.69 Personal history of other diseases of the nervous system and sense organs; Z79.84 Long term (current) use of oral hypoglycemic drugs; Z88.0 Allergy status to penicillin; Z91.018 Allergy to other foods
CPT/HCPCS: 36415; 70450; 70496; 70498; 71046; 80053; 80306; 80320; 80329; 81000; 83735; 83874; 84443; 84703; 85025; 85610; 85730; 86308; 87088; 93005; 93041; 96374

== ENCOUNTER → 2019-12-13 | Outpatient (CLI) | payer BC ==
[~2019-12-13] MED LIST changes: -ACET-77 PO; +ACET-78 PO; -MAGN400T6 PO; +MAGN400T8 PO; +METH4TAB PO; -METO-395 PO; +MTP100TCR PO
[2019-12-13 17:39] LABS: BASOPHILS % (AUTO) 0 % (0-10); EOSINOPHILS # (AUTO) 0.2 10^3/uL (0.0-0.3); EOSINOPHILS % (AUTO) 2 % (0-10); LYMPHOCYTES # (AUTO) 3.2 X 10^3 (1.0-4.0); LYMPHOCYTES % (AUTO) 26 % (12-44); MEAN CORPUSCULAR HGB CONC 34 G/DL (32-36); MEAN CORPUSCULAR VOLUME 81 FL (80-99); MEAN PLATELET VOLUME 9.9 FL (7.4-10.4); MONOCYTES # (AUTO) 1.1 X 10^3 (0.0-1.0); MONOCYTES % (AUTO) 9 % (0-12); NEUTROPHILS # (AUTO) 7.9 X 10^3 (1.8-7.8); NEUTROPHILS % (AUTO) 64 % (42-75); RED CELL DISTRIBUTION WIDTH 13.5 % (10.0-14.5)
[2019-12-13 17:40] LABS: HEMATOCRIT 36 % (35-52); MEAN CORPUSCULAR HEMOGLOBIN 27 PG (25-34); PLATELET COUNT 172 10^3/uL (130-400); WHITE BLOOD COUNT 13.7 10^3/uL (4.3-11.0)
[2019-12-13 17:52] LABS: ALBUMIN 4.4 GM/DL (3.2-4.5); BILIRUBIN,TOTAL 0.3 MG/DL (0.1-1.0); CALCIUM 10.5 MG/DL (8.5-10.1); CREATININE SERUM 1.12 MG/DL (0.60-1.30); POTASSIUM 4.4 MMOL/L (3.6-5.0); TOTAL PROTEIN 7.7 GM/DL (6.4-8.2)
[2019-12-13 18:12] LABS: FREE T4 (FREE THYROXINE) 0.84 NG/DL (0.70-1.48)
== END ==
LOC: LAB 16:19
PROVIDERS: ATTEND Internal Medicine
DX: D64.9 Anemia, unspecified (principal); I10 Essential (primary) hypertension; E11.9 Type 2 diabetes mellitus without complications; I63.9 Cerebral infarction, unspecified
CPT/HCPCS: 36415; 80053; 80061; 82728; 83540; 84439; 84443; 85025

== ENCOUNTER → 2019-12-13 | Outpatient (CLI) | payer BC ==
[2019-12-13 16:29] LABS: PROTEIN URINE MG/DL < 6 MG/DL (6-12)
[2019-12-13 17:26] LABS: TOTAL VOLUME,URINE 1750 ML
== END ==
LOC: LAB 14:40
PROVIDERS: ATTEND Obstetrics & Gynecology
DX: I10 Essential (primary) hypertension (principal); D68.9 Coagulation defect, unspecified; Z86.73 Personal history of transient ischemic attack (TIA), and cerebral infarction without residual deficits
CPT/HCPCS: 36415; 81240; 82384; 82530; 83835; 84156; 85300; 85302; 85303; 85307; 85610; 85705; 85730; 86146; 86147

== ENCOUNTER 2019-12-27 20:47 | Outpatient (CLI) | payer BC | END 2019-12-28 06:15 | disposition home or self-care (01) | LOC: SLEEP 20:47 | PROVIDERS: ATTEND Otolaryngology Otolaryngology/Facial Plastic Surgery | DX: G47.33 Obstructive sleep apnea (adult) (pediatric) (principal); R06.83 Snoring; G47.10 Hypersomnia, unspecified; I10 Essential (primary) hypertension; Z86.73 Personal history of transient ischemic attack (TIA), and cerebral infarction without residual deficits | CPT/HCPCS: 95810 ==

== ENCOUNTER 2020-03-05 12:34 | Outpatient (CLI) | payer BC ==
[~2020-03-05] VITALS: Ht 167.7 cm; Wt 114.0 kg
[2020-03-05 12:35] VITALS: BP 152/103
[2020-03-05] MEDS ORDERED: IRON DEXTRAN 1,000 MG/NS 250 ML IVPB IV ONE ×2 (13:15)
[2020-03-05] MEDS ORDERED: IRON DEXTRAN 25 MG/NS 6.25 ML TOTAL VOLUME IV ONE ×3 (13:15)
== END 2020-03-05 15:45 | disposition home or self-care (01) ==
LOC: SDC 12:34
PROVIDERS: ATTEND Internal Medicine
DX: E61.1 Iron deficiency (principal)
CPT/HCPCS: 96365; 96366

== ENCOUNTER → 2020-08-01 | Outpatient (CLI) | payer BC ==
[~2020-08-01] MED LIST changes: +AMLO-251 PO; -AMLO10TA7 PO; +CLN.1T PO; -CLON0.1T PO
[2020-08-01 16:31] LABS: HEMATOCRIT 37 % (35-52); HEMOGLOBIN 13.2 G/DL (11.5-16.0); LYMPHOCYTES % (AUTO) 35 % (12-44); MEAN CORPUSCULAR HEMOGLOBIN 31 PG (25-34); MEAN CORPUSCULAR HGB CONC 36 G/DL (32-36); MEAN CORPUSCULAR VOLUME 87 FL (80-99); MEAN PLATELET VOLUME 10.5 FL (7.4-10.4); NEUTROPHILS % (AUTO) 57 % (42-75); PLATELET COUNT 264 10^3/uL (130-400); WHITE BLOOD COUNT 8.1 10^3/uL (4.3-11.0)
[2020-08-01 16:32] LABS: BASOPHILS % (AUTO) 1 % (0-10); EOSINOPHILS # (AUTO) 0.1 10^3/uL (0.0-0.3); EOSINOPHILS % (AUTO) 2 % (0-10); LYMPHOCYTES # (AUTO) 2.8 X 10^3 (1.0-4.0); MONOCYTES # (AUTO) 0.5 X 10^3 (0.0-1.0); MONOCYTES % (AUTO) 6 % (0-12); NEUTROPHILS # (AUTO) 4.6 X 10^3 (1.8-7.8)
[2020-08-01 17:05] LABS: BUN/CREATININE RATIO 12; CARBON DIOXIDE 24 MMOL/L (21-32); CHLORIDE 99 MMOL/L (98-107); CREATININE SERUM 0.86 MG/DL (0.60-1.30); GFR ESTIMATED > 60; GLUCOSE 244 MG/DL (70-105); POTASSIUM 4.5 MMOL/L (3.6-5.0); SODIUM 136 MMOL/L (135-145)
[2020-08-01 17:06] LABS: ALANINE AMINOTRANSFERASE 62 U/L (0-55); ALBUMIN 4.5 GM/DL (3.2-4.5); ALKALINE PHOSPHATASE 87 U/L (40-136); BILIRUBIN,TOTAL 0.5 MG/DL (0.1-1.0); CALCIUM 9.6 MG/DL (8.5-10.1); TOTAL PROTEIN 7.4 GM/DL (6.4-8.2)
== END ==
LOC: LAB FS 16:07
PROVIDERS: ATTEND Internal Medicine
DX: E78.00 Pure hypercholesterolemia, unspecified (principal); E78.1 Pure hyperglyceridemia; E11.65 Type 2 diabetes mellitus with hyperglycemia; E03.9 Hypothyroidism, unspecified; D64.9 Anemia, unspecified; I10 Essential (primary) hypertension
CPT/HCPCS: 36415; 80053; 82465; 82728; 83036; 83540; 84439; 84443; 84478; 85025

== ENCOUNTER → 2021-02-13 | Outpatient (CLI) | payer BC ==
[~2021-02-13] MED LIST changes: -LISI-552 PO; +LISI20TA26 PO; +SERT-413 PO; -SERT50TA9 PO
== END ==
LOC: CARD 14:14
PROVIDERS: ATTEND Internal Medicine Cardiovascular Disease
DX: I27.20 Pulmonary hypertension, unspecified (principal); I51.7 Cardiomegaly
CPT/HCPCS: 93306